=== PATIENT | female | born 1940 | race Caucasian/White ===

== ENCOUNTER → 2017-10-23 13:03 | Outpatient (CLI) | payer OTHER, SELFPAY | PROVIDERS: Family Provider Physician Assistant; PCP Physician Assistant; Visit Provider Physician Assistant | DX: R30.9 Painful micturition, unspecified (principal) | CPT/HCPCS: 87077; 87086; 87186 ==

== ENCOUNTER → 2017-11-04 12:01 | Outpatient (CLI) | payer OTHER, SELFPAY ==
--- NOTE | 2017-11-04 | DI.MG.S_ITS ---
BILATERAL DIGITAL SCREENING MAMMOGRAM 3D/2D WITH CAD: 11/04/2017 CLINICAL: Routine screening. Family history of breast cancer. Comparison is made to exams dated: 09/09/2016 mammogram, 07/24/2015 mammogram, and 06/15/2014 mammogram - [facility]. The tissue of both breasts is extremely dense, which lowers the sensitivity of mammography. Current study was also evaluated with a Computer Aided Detection (CAD) system. No significant masses, calcifications, or other findings are seen in either breast. There has been no significant interval change. IMPRESSION: NEGATIVE There is no mammographic evidence of malignancy. A 1 year screening mammogram is recommended. This exam was interpreted at Station ID: [id number]. NOTE: For mammograms, a report in lay terms will be sent to the patient. Approximately 15% of breast malignancies will not be visualized mammographically. In the management of a palpable breast mass, a negative mammogram must not discourage biopsy of a clinically suspicious lesion. Electronically Signed By: Iker verdugo/mik:11/04/2017 16:35:32 letter sent: Normal Exam ACR BI-RADS Category 1: Negative 3341F
== END ==
PROVIDERS: Family Provider Physician Assistant; PCP Physician Assistant; Visit Provider Physician Assistant
DX: Z12.31 Encounter for screening mammogram for malignant neoplasm of breast (principal); Z80.3 Family history of malignant neoplasm of breast
CPT/HCPCS: 77063; 77067

== ENCOUNTER → 2017-11-05 08:53 | Outpatient (CLI) | payer OTHER, SELFPAY ==
[2017-11-05 10:16] LABS: HEMOLYSIS < 15 (0-50); Iron 130 ug/dL (37-170)
[2017-11-05 10:21] LABS: Alanine Aminotransferase 22 IU/L (9-52); Albumin 4.3 g/dL (3.5-5.0); Albumin Globulin Ratio 1.3 (1.0-2.8); Alkaline Phosphatase 66 U/L (38-126); Aspartate Aminotransferase 31 IU/L (14-36); BUN Creatinine Ratio 24.3 (6-22); Bilirubin Total 0.9 mg/dL (0.2-1.3); Blood Urea Nitrogen 17 mg/dL (7-17); Calcium 9.1 mg/dL (8.4-10.2); Carbon Dioxide 29 mmol/L (22-32); Chloride 100 mmol/L (98-107); Cholesterol 211 mg/dL (140-199); Estimated Glomerular Filt Rate > 60.0 mL/min (>60); Globulin 3.2 g/dL (1.7-4.1); Glucose 91 mg/dL (80-110); HDL Cholesterol 99 mg/dL (40-60); HEMOLYSIS < 15 (0-50); LDL Cholesterol Calculated 103 mg/dL (<100); Potassium 4.3 mmol/L (3.4-5.1); Sodium 139 mmol/L (137-145); Total Protein 7.5 g/dL (6.3-8.2); Triglycerides 47 mg/dL (35-150)
[2017-11-05 10:27] LABS: Percent Iron Saturation 42 % (15-50); Total Iron Binding Capacity 311 ug/dL (265-497); Transferrin 259 mg/dL (206-381)
[2017-11-05 10:32] LABS: Free T4, Direct Thyroxine 1.05 ng/dL (0.78-2.19)
[2017-11-05 10:46] LABS: Thyroid Stimulating Hormone 1.93 uIU/mL (0.47-4.68)
[2017-11-05 10:51] LABS: Ferritin 63.2 ng/mL (11.1-264)
== END ==
PROVIDERS: Family Provider Physician Assistant; PCP Physician Assistant; Visit Provider Physician Assistant
DX: R53.83 Other fatigue (principal); R21 Rash and other nonspecific skin eruption; Z13.220 Encounter for screening for lipoid disorders; Z13.6 Encounter for screening for cardiovascular disorders
CPT/HCPCS: 36415; 80053; 80061; 82728; 83540; 83550; 84439; 84443

== ENCOUNTER → 2017-11-08 11:05 | Outpatient (CLI) | payer OTHER, SELFPAY | PROVIDERS: Family Provider Physician Assistant; PCP Physician Assistant; Visit Provider Physician Assistant | DX: R39.9 Unspecified symptoms and signs involving the genitourinary system (principal) | CPT/HCPCS: 87077; 87086; 87186 ==

== ENCOUNTER → 2017-12-16 11:27 | Outpatient (CLI) | payer OTHER, SELFPAY | PROVIDERS: Family Provider Physician Assistant; PCP Physician Assistant; Visit Provider Physician Assistant | DX: N39.0 Urinary tract infection, site not specified (principal) | CPT/HCPCS: 87077; 87086; 87186 ==

== ENCOUNTER → 2018-06-03 09:44 | Outpatient (CLI) | payer OTHER, SELFPAY ==
--- NOTE | 2018-06-03 09:51 | DI.US.S_ITS ---
PROCEDURE: US CHEST COMPARISON: None. INDICATIONS: Soft tissue mass upper left below lateral clavicle FINDINGS: A focused ultrasound is performed in the area of interest. There is a 2.2 x 1.2 x 3.0 cm isoechoic mass deep to the palpable abnormality. Upper ultrasound, there is vascularity within the mass. IMPRESSION: A 2.2 x 1.2 x 3.0 cm isoechoic mass in the area of palpable abnormality. 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 MRI or CT is suggested for followup evaluation. Dictated by: Ml Connolly M.D. on 06/03/2018 at 11:41 Approved by: Ml Connolly M.D. on 06/03/2018 at 17:54
== END ==
PROVIDERS: PCP Physician Assistant; Visit Provider Physician Assistant
DX: M79.9 Soft tissue disorder, unspecified (principal)
CPT/HCPCS: 76604

== ENCOUNTER → 2018-11-16 12:11 | Outpatient (CLI) | payer OTHER, SELFPAY ==
--- NOTE | 2018-11-16 | DI.MG.S_ITS ---
BILATERAL DIGITAL SCREENING MAMMOGRAM 3D/2D WITH CAD: 11/16/2018 CLINICAL: Routine screening. Family history of breast cancer. Comparison is made to exams dated: 11/04/2017 mammogram, 09/09/2016 mammogram, and 07/24/2015 mammogram - [facility]. The tissue of both breasts is extremely dense, which lowers the sensitivity of mammography. Current study was also evaluated with a Computer Aided Detection (CAD) system. No significant masses, calcifications, or other findings are seen in either breast. There has been no significant interval change. IMPRESSION: NEGATIVE There is no mammographic evidence of malignancy. A 1 year screening mammogram is recommended. This exam was interpreted at Station ID: [id number]. NOTE: For mammograms, a report in lay terms will be sent to the patient. Approximately 15% of breast malignancies will not be visualized mammographically. In the management of a palpable breast mass, a negative mammogram must not discourage biopsy of a clinically suspicious lesion. Electronically Signed By: Amna cornejo/mik:11/16/2018 12:52:45 letter sent: Normal Exam ACR BI-RADS Category 1: Negative 3341F
== END ==
PROVIDERS: PCP Physician Assistant; Visit Provider Physician Assistant
DX: Z12.31 Encounter for screening mammogram for malignant neoplasm of breast (principal); Z80.3 Family history of malignant neoplasm of breast; M85.852 Other specified disorders of bone density and structure, left thigh; Z78.0 Asymptomatic menopausal state; Z90.722 Acquired absence of ovaries, bilateral; Z82.62 Family history of osteoporosis; Z87.891 Personal history of nicotine dependence
CPT/HCPCS: 77063; 77067; 77080

== ENCOUNTER → 2018-12-14 10:29 | Outpatient (CLI) | payer OTHER, SELFPAY ==
--- NOTE | 2018-12-14 | DI.RAD.S_ITS ---
PROCEDURE: XR LUMBAR SPINE 2-3V INDICATIONS: Low Back Pain TECHNIQUE: 3 views of the lumbar spine were acquired. COMPARISON: [facility], CT, ABDOMEN/PELVIS WITH CONTRAST, 08/23/2015, 13:08. FINDINGS: Bones: 5 [id number] vertebrae are present. There is abnormal bony alignment with grade 1-2 anterolisthesis of L4 on L5, previously present to a slightly lesser degree on CT scanning from 08/22/18. Disc height reduction and facet osteoarthritis has mildly worsened at this level also, with ligamentous laxity as the likely cause for the subluxation noted. There is essentially tfmv-xy-hlin articulation between the base and endplates. No vertebral body compression fractures. No suspicious bony lesions. Soft tissues: Overlying bowel gas pattern is normal. No suspicious soft tissue calcifications. IMPRESSION: Severe degenerative disc disease with grade 1-2 anterolisthesis of L4 and L5 at the lower lumbosacral spine, without pars interarticularis defects identified. Rather, severe degenerative disc height reduction and ligamentous laxity as the presumed cause for the anterolisthesis present. Along the lumbosacral spine no compression fracture is seen. The degree of subluxation and degenerative change at L4-5 has only mildly worsened from the comparison CT scanning included this area 08/23/15. Dictated by: Fermin Muller M.D. on 12/14/2018 at 10:55 Approved by: Fermin Muller M.D. on 12/14/2018 at 10:57
== END ==
PROVIDERS: PCP Physician Assistant; Visit Provider Chiropractor
DX: M54.5 Low back pain (principal); M51.37 Other intervertebral disc degeneration, lumbosacral region; M51.36 Other intervertebral disc degeneration, lumbar region
CPT/HCPCS: 72100

== ENCOUNTER → 2019-03-15 16:12 | Outpatient (CLI) | payer OTHER, SELFPAY ==
--- NOTE | 2019-03-15 16:13 | DI.MRI.S_ITS ---
PROCEDURE: MR LUMBAR SPINE WO CON INDICATIONS: Persistant LBP with radiation into left hip/lower leg TECHNIQUE: Noncontrast sagittal T1 spin echo and T2 fast echo, sagittal STIR, axial T1 and T2 fast spin echo through the lumbar spine. In cases with scoliosis, additional coronal T2 fast spin echo may be performed. COMPARISON: [facility], CR, XR LUMBAR SPINE 2-3V, 12/14/2018, 10:36. [facility], CT, ABDOMEN/PELVIS WITH CONTRAST, 08/23/2015, 13:08. FINDINGS: Image quality: Excellent. Alignment and Curvature: Grade 1 anterolisthesis is seen at the L4-L5 level. No associated pars defects are seen. Bone Marrow: Marrow is of normal overall signal. No acute vertebral body compression fractures. Spinal Cord: Conus medullaris terminates at the L1 level. Visualized cord demonstrates normal signal and size. Paraspinous Soft Tissues: No paravertebral masses. T12-L1: Normal appearance. L1-L2: Normal appearance. L2-L3: No significant abnormality is seen. L3-L4: The disc height is well-preserved. Loss of disc signal is seen at this level. Mild generalized disc bulge is seen. Moderate facet joint hypertrophy is seen. There is mild right-sided and no left-sided neural foraminal narrowing seen. Moderate central canal narrowing is seen. Moderate to prominent facet hypertrophy is seen. L4-L5: There is moderate to severe loss of disc height and disc signal seen. Moderate generalized disc bulge is seen. Prominent facet hypertrophy is seen. There is at least moderate bilateral neural foraminal narrowing seen. There is a degree of compression seen upon the exiting nerve roots. Moderate to severe central canal narrowing is seen, as on series 4 image 26. L5-S1: The disc height is well-preserved. Loss of disc signal is seen at this level. Mild generalized disc bulge is seen. Owal-jm-kcwjvxdq facet hypertrophy is seen. There is mild left-sided and right-sided neural foraminal narrowing seen. No significant central canal narrowing is seen. IMPRESSION: Focal L4-L5 degenerative change, where there is grade 1 anterolisthesis with at least moderate bilateral neural foraminal narrowing and moderate to severe central canal narrowing. Dictated by: Jason Coyne M.D. on 03/15/2019 at 16:47 Approved by: Jason Coyne M.D. on 03/15/2019 at 16:52
== END ==
PROVIDERS: PCP Physician Assistant; Visit Provider Physician Assistant
DX: M47.26 Other spondylosis with radiculopathy, lumbar region (principal); M25.552 Pain in left hip; M48.061 Spinal stenosis, lumbar region without neurogenic claudication; M43.16 Spondylolisthesis, lumbar region
CPT/HCPCS: 72148

== ENCOUNTER 2020-02-04 15:53 | Emergency (ER) | payer MEDICARE, SELFPAY ==
[2020-02-04] VITALS (8 sets, daily range): BP systolic 145–169; BP diastolic 87–111; PULSE 93–144; RESP 20–28; TEMP 36.3–36.4; O2SAT 97–99; BMI 19.8
--- NOTE | 2020-02-04 16:14 | DI.RAD.S_ITS ---
PROCEDURE: XR CHEST 1V INDICATIONS: Chest pain TECHNIQUE: One view of the chest was acquired. COMPARISON: None. FINDINGS: Surgical changes and devices: None. Lungs and pleura: Lungs are clear. No pleural effusions or pneumothorax. Mediastinum: Mediastinal contours appear normal. Heart size is normal. Bones and chest wall: No suspicious bony lesions. Overlying soft tissues appear unremarkable. IMPRESSION: No acute process. Dictated by: Donnell Sanon M.D. on 02/04/2020 at 16:43 Approved by: Donnell Sanon M.D. on 02/04/2020 at 16:44
--- NOTE | 2020-02-04 16:23 | ED_ITS ---
HPI - Arrhythmia/Palpitations General Chief Complaint: Arrhythmia/Palpitations Stated Complaint: Abnormal EKG Time Seen by Provider: 02/04/20 16:06 Source: patient Mode of arrival: Family Vehicle Limitations: no limitations History of Present Illness HPI narrative: Patient sent here from primary care office Dr. Leslie, for abnormal EKG. Patient with primary care today for preventive care visit because her medical insurance changed. Denies denies denies any recent or today chest pain palpitations dizziness dyspnea. No prior history of heart problems. EKG in office shows atrial fibrillation with RVR rate of 116. Patient did not know she was in atrial fibrillation. complaint: atrial fibrillation Related Data Previous Rx's Medication Instructions Recorded valacyclovir 500 mg tablet 500 mg PO BID PRN #30 tab 01/18/19 Estriol Vaginal Cream 0.1 % VAGINAL BEDTIME #30 gram 05/25/19 metoprolol tartrate 25 mg PO BID #30 tab 02/04/20 Allergies Allergy/AdvReac Type Severity Reaction Status Date / Time gluten Allergy Intermediate diarrhea Verified 02/04/20 16:17 Review of Systems Review of Systems Narrative: GENERAL: Denies chills, fatigue, malaise, fever, sweats. HEENT: Denies sinus pain, ear pain, sore throat, difficulty swallowing, dizziness. RESPIRATORY: Denies dyspnea, cough, wheezing, hemoptysis, sputum. CARDIOVASCULAR: Denies chest pain, palpitations, orthopnea, edema, GASTROINTESTINAL: Denies nausea, vomiting, abdominal pain, diarrhea, constipation, melena. : Denies dysuria, frequency, incontinence, hematuria, urinary retention. MUSCULOSKELETAL: denies weakness, joint pain, or bony pain SKIN: Denies rash, skin lesions NEUROLOGIC: Denies weakness, headache, numbness, change in speech, confusion, seizures, incoordination. PSYCHIATRIC: No concerning psychosocial issues. ROS Unobtainable: All systems reviewed & are unremarkable except as noted in HPI and below Patient History Surgical History Status post ovarian cystectomy Family History Mother Breast cancer Sister Age: 79 Cervical cancer Father Rheumatoid arthritis Social History marital status: household members: spouse occupational status: previously employed Smoking Status: Former smoker Tobacco: How many years used: 20 second hand exposure: No alcohol intake: current (a glass of wine a day) substance use type: does not use Smoking Status: Former smoker alcohol intake frequency: 0-2 drinks per day Alcohol type: wine Substance Use Type: does not use Exam Narrative Exam Narrative: GENERAL: patient appears stated age. Well-nourished, well- developed patient, in no distress, not toxic HEAD: Atraumatic. Normocephalic. EYES: Pupils equal round and reactive. Extraocular motions intact. No scleral icterus. No injection or drainage. ENT: Nose without bleeding, purulent drainage. Throat without erythema, tonsillar hypertrophy or exudate. Airway patent. NECK: Trachea midline. Non tender CARDIOVASCULAR: Irregularly irregular rhythm without murmurs, gallops, or rubs. RESPIRATORY: Clear to auscultation. Breath sounds equal bilaterally. No wheezes, rales, or rhonchi. GASTROINTESTINAL: Abdomen soft, non-tender, nondistended. EXTREMITIES: No edema or joint tenderness. BACK: Nontender without deformity or crepitance. No flank tenderness. NEURO: AOx4. SKIN: No rash or erythema of visible areas PSYCH: Not anxious, is cooperative Initial Vital Signs Initial Vital Signs: Vital Signs Temperature 97.4 F L 02/04/20 16:00 Pulse Rate 144 H 02/04/20 16:00 Respiratory Rate 20 02/04/20 16:00 Blood Pressure 169/95 H 02/04/20 16:00 Pulse Oximetry 97 02/04/20 16:00 Course Course Course Narrative: No cardiopulmonary complaints during stay Orders Ordered: ED Orders 02/04/20 16:01 EKG-12 Lead Stat 02/04/20 16:14 XR chest 1V Stat 02/04/20 16:20 Complete Blood Count AUTO DIFF Stat Comprehensive Metabolic Panel Stat Lipase Stat Partial Thromboplastin Time Stat Prothrombin Time INR Stat Thyroid Stimulating Hormone Stat Troponin & CK Cardiac Panel Stat Discontinued Medications Metoprolol Succinate (Toprol Xl) 25 mg PO NOW ONE Stop: 02/04/20 17:28 Last Admin: 02/04/20 17:40 Dose: 25 mg Documented by: WARNER Reevaluation(s) Reevaluation #1: Reviewed results in discussion with specialized language instructor with patient and at bedside. They agree with plan. Understands risk of stroke with atrial fibrillation. Understands she is to follow up with cardiology next week to start Eliquis Time: 17:28 Reevaluation #2: Heart rate 93 and still in AFib but stable. No chest complaints palpitations dyspnea or chest pain Time: 18:19 Consultations Consultation #1: Spoke with cardiology dr rodriguez, patient can be discharged home. Follow up in his office, he will continue evaluation and workup in start Eliquis in the office. Start metoprolol tonight 25 mg twice a day Time: 17:29 Vital Signs Vital signs: Vital Signs - 8 hr 02/04/20 16:00 02/04/20 17:01 02/04/20 17:08 Temperature 97.4 F L Pulse Rate 144 H 120 H 115 H Respiratory Rate 20 22 Blood Pressure 169/95 H 169/94 H Pulse Oximetry 97 99 99 02/04/20 17:30 02/04/20 17:40 Temperature Pulse Rate 99 H 99 H Respiratory Rate 26 H Blood Pressure 145/111 H 145/111 H Pulse Oximetry MDM - Arrhythmia/Palpitations Differential Diagnosis Differential diagnosis: Likely artial fibrillation and artial flutter Medical Records Attestation: I reviewed the patient's medical records. Lab Data Attestation: I reviewed the patient's lab results. Result diagrams: 02/04/20 16:20 02/04/20 16:20 Labs: Lab Results 02/04/20 02/04/20 02/04/20 Range/Units 16:20 16:20 16:20 WBC 8.4 (4.5-11.0) X10^3/uL RBC 4.05 (4.0-5.2) X10^6/uL Hgb 13.7 (12.0-16.0) g/dL Hct 41.0 (36-46) % MCV 101.2 H (80-100) fL MCH 33.7 (26-34) PG MCHC 33.3 (30-36) % RDW 13.4 (11.6-14.8) % Plt Count 292 (150-400) X10^3/uL Neut % (Auto) 66.5 (50-75) % Lymph % (Auto) 23.1 L (25-40) % [place] % (Auto) 8.5 (3-14) % Eos % (Auto) 1.5 L (2-4) % Baso % (Auto) 0.4 (0-2) % Neut # (Auto) 5600 (2020-6636) /uL Lymph # (Auto) 1900 (8223-1164) /uL [place] # (Auto) 700 (0-900) /uL Eos # (Auto) 100 (0-450) /uL Baso # (Auto) 0 (0-100) /uL PT 11.9 (10.1-12.7) SECONDS INR 1.0 (0.9-1.3) APTT 29 (26.4-36.2) SECONDS Sodium 139 (137-145) mmol/L Potassium 4.2 (3.4-5.1) mmol/L Chloride 104 (98-107) mmol/L Carbon Dioxide 26 (22-32) mmol/L BUN 17 (7-17) mg/dL Creatinine 0.82 (0.52-1.04) mg/dL Estimated GFR > 60.0 (>60) mL/min BUN/Creatinine Ratio 20.7 (6-22) Glucose 109 (80-110) mg/dL Calcium 9.8 (8.4-10.2) mg/dL Total Bilirubin 0.6 (0.2-1.3) mg/dL AST 38 H (14-36) IU/L ALT 18 (<35) IU/L Alkaline Phosphatase 92 (38-126) U/L Total Creatine Kinase 114 (30-135) U/L CK-MB (CK-2) 2.06 (<2.37) ng/mL CK-MB (CK-2) Rel Index 1.8 (1.5-5.0) % Troponin I < 0.012 (0.01-0.034) ng/mL Total Protein 7.5 (6.3-8.2) g/dL Albumin 4.3 (3.5-5.0) g/dL Globulin 3.2 (1.7-4.1) g/dL Albumin/Globulin Ratio 1.3 (1.0-2.8) Lipase 111 (23-300) U/L TSH (0.47-4.68) uIU/mL 02/04/20 Range/Units 16:20 WBC (4.5-11.0) X10^3/uL RBC (4.0-5.2) X10^6/uL Hgb (12.0-16.0) g/dL Hct (36-46) % MCV (80-100) fL MCH (26-34) PG MCHC (30-36) % RDW (11.6-14.8) % Plt Count (150-400) X10^3/uL Neut % (Auto) (50-75) % Lymph % (Auto) (25-40) % [place] % (Auto) (3-14) % Eos % (Auto) (2-4) % Baso % (Auto) (0-2) % Neut # (Auto) (2978-9160) /uL Lymph # (Auto) (8402-5907) /uL [place] # (Auto) (0-900) /uL Eos # (Auto) (0-450) /uL Baso # (Auto) (0-100) /uL PT (10.1-12.7) SECONDS INR (0.9-1.3) APTT (26.4-36.2) SECONDS Sodium (137-145) mmol/L Potassium (3.4-5.1) mmol/L Chloride (98-107) mmol/L Carbon Dioxide (22-32) mmol/L BUN (7-17) mg/dL Creatinine (0.52-1.04) mg/dL Estimated GFR (>60) mL/min BUN/Creatinine Ratio (6-22) Glucose (80-110) mg/dL Calcium (8.4-10.2) mg/dL Total Bilirubin (0.2-1.3) mg/dL AST (14-36) IU/L ALT (<35) IU/L Alkaline Phosphatase (38-126) U/L Total Creatine Kinase (30-135) U/L CK-MB (CK-2) (<2.37) ng/mL CK-MB (CK-2) Rel Index (1.5-5.0) % Troponin I (0.01-0.034) ng/mL Total Protein (6.3-8.2) g/dL Albumin (3.5-5.0) g/dL Globulin (1.7-4.1) g/dL Albumin/Globulin Ratio (1.0-2.8) Lipase (23-300) U/L TSH 1.16 (0.47-4.68) uIU/mL Imaging Data Chest x-ray: Radiologist's Impresson: [address] [id number] XRay Report Signed Patient: Yris Nichols#: [id number] : 2Acct:[id number] Age/Sex: 79 / FDate of Service: 02/04/20 Loc: ED Accession Number: [id number] Procedure: XR chest 1V Ordering Provider: Saeed Camejo MD PROCEDURE: XR CHEST 1V INDICATIONS: Chest pain TECHNIQUE: One view of the chest was acquired. COMPARISON: None. FINDINGS: Surgical changes and devices: None. Lungs and pleura: Lungs are clear. No pleural effusions or pneumothorax. Mediastinum: Mediastinal contours appear normal. Heart size is normal. Bones and chest wall: No suspicious bony lesions. Overlying soft tissues appear unremarkable. IMPRESSION: No acute process. Dictated by: Donnell Sanon M.D. on 02/04/2020 at 16:43 Approved by: Donnell Sanon M.D. on 02/04/2020 at 16:44 ECG Data Attestation: I personally reviewed and interpreted this ECG as follows: Interpretation: Atrial fibrillation with RVR ventricular rate [address] elevation MDM Narrative Medical decision making narrative: Appropriate for discharge home. Reviewed with specialized language instructor. This is incidental finding and asymptomatic. Discharge Plan Departure Patient Disposition: Home Clinical Impression: Atrial fibrillation, new onset Instructions: DI for Atrial Fibrillation Activity Restrictions/Additional Instructions: Call provided specialized language instructor office on Friday for office time next week. Lead Game Designer will start you on Eliquis, blood thinner next week. Continue new blood pressure medication tomorrow morning. Return if worse or any questions concerns. Prescription has been sent to your [facility] Prescriptions: New metoprolol tartrate 25 mg tablet 25 mg PO BID Qty: 30 RF: 0 No Action valacyclovir 500 mg tablet 500 mg PO BID PRN (Reason: Herpes infection) Qty: 30 RF: 6 Estriol Vaginal Cream cream 0.1 % vaginal BEDTIME Qty: 30 RF: 6 Referrals: Starr Muir PA-C [Primary Care Provider] - Rhea Rodriguez MD [Physician] -
[2020-02-04 16:32] LABS: Add Manual Diff / Slide Review NO; Basophils Absolute Auto 0 /uL (0-100); Basophils Percent Auto 0.4 % (0-2); Eosinophils Absolute Auto 100 /uL (0-450); Eosinophils Percent Auto 1.5 % (2-4); Hemoglobin 13.7 g/dL (12.0-16.0); Lymphocytes Absolute Auto 1900 /uL (1100-4500); Lymphocytes Percent Auto 23.1 % (25-40); Mean Corpuscular HGB Conc 33.3 % (30-36); Mean Corpuscular Hemoglobin 33.7 PG (26-34); Mean Corpuscular Volume 101.2 fL (80-100); Monocytes Absolute Auto 700 /uL (0-900); Monocytes Percent Auto 8.5 % (3-14); Neutrophils Absolute Auto 5600 /uL (1500-7000); Neutrophils Percent Auto 66.5 % (50-75); Platelet Count 292 X10^3/uL (150-400); Red Blood Cell Count 4.05 X10^6/uL (4.0-5.2); Red Cell Distribution Width 13.4 % (11.6-14.8); White Blood Cell Count 8.4 X10^3/uL (4.5-11.0)
[2020-02-04 16:37] LABS: Prothrombin Time 11.9 SECONDS (10.1-12.7)
[2020-02-04 16:40] LABS: PTT Partial Thromboplastin Tim 29 SECONDS (26.4-36.2)
[2020-02-04 16:52] LABS: Alanine Aminotransferase 18 IU/L (<35); Albumin 4.3 g/dL (3.5-5.0); Albumin Globulin Ratio 1.3 (1.0-2.8); Alkaline Phosphatase 92 U/L (38-126); Aspartate Aminotransferase 38 IU/L (14-36); BUN Creatinine Ratio 20.7 (6-22); Bilirubin Total 0.6 mg/dL (0.2-1.3); Blood Urea Nitrogen 17 mg/dL (7-17); Calcium 9.8 mg/dL (8.4-10.2); Carbon Dioxide 26 mmol/L (22-32); Chloride 104 mmol/L (98-107); Creatine Kinase 114 U/L (30-135); Estimated Glomerular Filt Rate > 60.0 mL/min (>60); Globulin 3.2 g/dL (1.7-4.1); Glucose 109 mg/dL (80-110); HEMOLYSIS < 15 (0-50); Lipase 111 U/L (23-300); Potassium 4.2 mmol/L (3.4-5.1); Sodium 139 mmol/L (137-145); Total Protein 7.5 g/dL (6.3-8.2)
[2020-02-04 17:03] LABS: Troponin I < 0.012 ng/mL (0.01-0.034)
[2020-02-04 17:07] LABS: CKMB % Relative Index 1.8 % (1.5-5.0); Creatine Kinase MB 2.06 ng/mL (<2.37)
[2020-02-04] MEDS: METOPROLOL ER 25 MG TABLET PO (17:40)
[2020-02-04 17:56] LABS: Thyroid Stimulating Hormone 1.16 uIU/mL (0.47-4.68)
== END 2020-02-04 18:44 | disposition home or self-care (01) ==
PROVIDERS: Emergency Provider Emergency Medicine; PCP Physician Assistant
DX: I48.91 Unspecified atrial fibrillation (principal)
CPT/HCPCS: 36415; 71045; 80053; 82550; 82553; 83690; 84443; 84484; 85025; 85610; 85730; 93005; 99284

== ENCOUNTER → 2020-02-26 12:44 | Outpatient (CLI) | payer MEDICARE, SELFPAY ==
--- NOTE | 2020-02-26 | DI.MG.S_ITS ---
BILATERAL DIGITAL SCREENING MAMMOGRAM 3D/2D WITH CAD: 02/26/2020 CLINICAL: Routine screening. Family history of breast cancer. Comparison is made to exams dated: 11/16/2018 mammogram, 11/04/2017 mammogram, and 09/09/2016 mammogram - [facility]. The tissue of both breasts is extremely dense, which lowers the sensitivity of mammography. Current study was also evaluated with a Computer Aided Detection (CAD) system. No significant masses, calcifications, or other findings are seen in either breast. There has been no significant interval change. IMPRESSION: NEGATIVE There is no mammographic evidence of malignancy. A 1 year screening mammogram is recommended. This exam was interpreted at Station ID: [id number]. NOTE: For mammograms, a report in lay terms will be sent to the patient. Approximately 15% of breast malignancies will not be visualized mammographically. In the management of a palpable breast mass, a negative mammogram must not discourage biopsy of a clinically suspicious lesion. Electronically Signed By: Amna cornejo/mik:02/28/2020 08:45:46 letter sent: Normal Exam ACR BI-RADS Category 1: Negative 3341F
== END ==
PROVIDERS: PCP Family Medicine; Referring Provider Family Medicine; Visit Provider Family Medicine
DX: Z12.31 Encounter for screening mammogram for malignant neoplasm of breast (principal); Z80.3 Family history of malignant neoplasm of breast
CPT/HCPCS: 77063; 77067

== ENCOUNTER → 2020-03-02 15:01 | Outpatient (CLI) | payer MEDICARE, SELFPAY ==
--- NOTE | 2020-03-02 | DI.ECHO.S_ITS ---
[facility]---------+ [facility] +---------+ : : [address] : : : : [id number] : : : : Phone: [phone] Echocardiogram Report + + :Name: TANYA DICKENS Study Date: 03/02/2020 Height: 62 in : :[facility] Weight: 103 lb : : Gender: Female BSA: 1.4 m2 : :: 1940 Age: 79 yrs BP: 133/89 mmHg: :Reason For Study: ATRIAL FIBRILLATION : :Ordering Physician: VERÓNICA, : :DIANDRA Performed By: Renetta Willis : :Referring: DIANDRA KUNZ : + + Interpretation Summary 1) Small left ventricular cavity with low normal systolic function (EF 50- 55%). 2) Normal right ventricular size with low normal function. 3) The left atrium is severely dilated. The right atrium is severely dilated. 4) There is mild to moderate tricuspid regurgitation. 5) No prior Echo available for comparison. Procedure: A two-dimensional transthoracic echocardiogram with color flow and Doppler was performed. The study quality was technically good. There is no prior echocardiogram noted for this patient. The patient was in atrial fibrillation with heart rates between 74-90 bpm during the exam. Left Ventricle: The left ventricular cavity is small. Left ventricular wall thickness is borderline increased. The ejection fraction is estimated to be 50-55%. There are no focal wall motion abnormalities. Diastolic parameters suggest a pseudonormalization pattern, consistent with probable elevated filling pressures. Right Ventricle: The right ventricle is normal size. Right ventricular systolic function is at the lower limits of normal. Atria: The left atrium is severely dilated. The right atrium is severely dilated. There is no Doppler evidence for an interatrial shunt. Mitral Valve: The mitral valve leaflets appear mildly thickened, but open well. There is mild mitral regurgitation. Aortic Valve: The aortic valve is trileaflet. The aortic valve opens well. There is no aortic valve stenosis. No aortic regurgitation is present. Tricuspid Valve: The tricuspid valve is normal in structure and function. The right ventricular systolic pressure is estimated to be at least 32 mmHg based on an estimated right atrial pressure of 8 mm Hg. There is mild to moderate tricuspid regurgitation. Pulmonic Valve: The pulmonic valve leaflets are thin and pliable; valve motion is normal. There is mild pulmonic regurgitation. Great Vessels: The aortic root is normal size. The dimensions of the ascending aorta are normal. The IVC is dilated (diameter is greater than 2.1 cm) yet it collapses greater than 50% with a sniff. This suggests a right atrial pressure of 8 mm Hg. Pericardium/ Pleura There is no pericardial effusion. There is no pleural effusion. MMode/2D Measurements & Calculations LVIDd: 3.6 cm LVOT diam: 1.9 cm LVIDs: 2.6 cm Ao root diam: 2.9 cm FS: 28.8 % asc Aorta Diam: 2.8 cm EPSS: 1.1 cm Ao Arch Diam (Prox Trans): 2.2 cm IVSd: 1.1 cm LVPWd: 1.00 cm LV glover. diameter/BSA (cm/m^2): 2.5 LV sys. diameter/BSA (cm/m^2): 1.8 LA A2 area: 24.3 cm2 RA long axis: 5.6 cm LA A4 area: 24.4 cm2 RA area: 21.7 cm2 LA length (vol): 6.0 cm RA vol: 71.1 ml LA vol: 83.8 ml RA : 49.3 ml/m2 LA vol index: 58.1 ml/m2 IVC diam: 2.2 cm RVD1 (basal): 3.0 cm TAPSE: 1.7 cm Doppler Measurements & Calculations Ao V2 max: 96.1 cm/sec LVOT Max Alcides: 56.5 cm/sec Ao V2 mean: 65.8 cm/sec LV V1 max P.3 mmHg Ao max P.7 mmHg LV V1 VTI: 11.9 cm Ao mean P.0 mmHg OPAL(I,D): 1.8 cm2 Ao V2 VTI: 18.8 cm OPAL(V,D): 1.7 cm2 sev ratio: 0.63 OPAL indexed to BSA (cm^2/m^2): 1.2 MV E max alcides: 88.3 cm/sec TR max alcides: 244.2 cm/sec MV A max alcides: 0.72 cm/sec TR max P.9 mmHg MV E/A: 123.2 PA V2 max: 39.4 cm/sec Med Peak E' Alcides: 3.6 cm/sec PA V2 mean: 25.3 cm/sec E/E' med: 24.5 PA mean P.30 mmHg Lat Peak E' Alcides: 7.0 cm/sec PA pr(Accel): 34.5 mmHg E/E' lat: 12.5 E/e' average: 18.5 MV dec time: 0.15 sec MVA(VTI): 2.2 cm2 MV V2 mean: 58.6 cm/sec SV(LVOT): 33.5 ml MV mean P.7 mmHg MV V2 VTI: 15.4 cm Reading Physician:10:48 AM
== END ==
PROVIDERS: PCP Family Medicine; Referring Provider Internal Medicine Cardiovascular Disease; Visit Provider Internal Medicine Cardiovascular Disease
DX: I08.1 Rheumatic disorders of both mitral and tricuspid valves (principal); I48.19 Other persistent atrial fibrillation
CPT/HCPCS: 93306

== ENCOUNTER → 2020-03-16 12:40 | Outpatient (CLI) | payer MEDICARE, SELFPAY ==
[2020-03-16 13:36] LABS: Add Manual Diff / Slide Review NO; Basophils Absolute Auto 0 /uL (0-100); Basophils Percent Auto 0.5 % (0-2); Eosinophils Absolute Auto 100 /uL (0-450); Eosinophils Percent Auto 1.7 % (2-4); Hematocrit 38.7 % (36-46); Lymphocytes Absolute Auto 1800 /uL (1100-4500); Lymphocytes Percent Auto 30.8 % (25-40); Mean Corpuscular HGB Conc 33.6 % (30-36); Mean Corpuscular Hemoglobin 33.1 PG (26-34); Mean Corpuscular Volume 98.5 fL (80-100); Monocytes Absolute Auto 500 /uL (0-900); Monocytes Percent Auto 8.9 % (3-14); Neutrophils Absolute Auto 3300 /uL (1500-7000); Neutrophils Percent Auto 58.1 % (50-75); Platelet Count 244 X10^3/uL (150-400); Red Blood Cell Count 3.93 X10^6/uL (4.0-5.2); Red Cell Distribution Width 13.1 % (11.6-14.8); White Blood Cell Count 5.7 X10^3/uL (4.5-11.0)
[2020-03-16 14:08] LABS: BUN Creatinine Ratio 21.4 (6-22); Blood Urea Nitrogen 18 mg/dL (7-17); Calcium 9.3 mg/dL (8.4-10.2); Carbon Dioxide 29 mmol/L (22-32); Chloride 104 mmol/L (98-107); Cholesterol 205 mg/dL (140-199); Estimated Glomerular Filt Rate > 60.0 mL/min (>60); Glucose 98 mg/dL (80-110); HDL Cholesterol 72 mg/dL (40-60); HEMOLYSIS < 15 (0-50); LDL Cholesterol Calculated 120 mg/dL (<100); Potassium 4.3 mmol/L (3.4-5.1); Sodium 137 mmol/L (137-145); Triglycerides 67 mg/dL (35-150)
== END ==
PROVIDERS: PCP Family Medicine; Referring Provider Family Medicine; Visit Provider Internal Medicine Cardiovascular Disease
DX: I10 Essential (primary) hypertension (principal)
CPT/HCPCS: 36415; 80048; 80061; 85025

== ENCOUNTER → 2020-04-13 15:57 | Outpatient (CLI) | payer MEDICARE, SELFPAY ==
[2020-04-13 16:40] LABS: Add Manual Diff / Slide Review NO; Basophils Absolute Auto 0 /uL (0-100); Basophils Percent Auto 0.5 % (0-2); Eosinophils Absolute Auto 100 /uL (0-450); Eosinophils Percent Auto 1.2 % (2-4); Hematocrit 36.4 % (36-46); Hemoglobin 12.3 g/dL (12.0-16.0); Lymphocytes Absolute Auto 1800 /uL (1100-4500); Lymphocytes Percent Auto 33.8 % (25-40); Mean Corpuscular HGB Conc 33.8 % (30-36); Mean Corpuscular Hemoglobin 32.9 PG (26-34); Mean Corpuscular Volume 97.3 fL (80-100); Monocytes Absolute Auto 600 /uL (0-900); Monocytes Percent Auto 11.4 % (3-14); Neutrophils Absolute Auto 2900 /uL (1500-7000); Neutrophils Percent Auto 53.1 % (50-75); Platelet Count 266 X10^3/uL (150-400); Red Blood Cell Count 3.74 X10^6/uL (4.0-5.2); Red Cell Distribution Width 13.7 % (11.6-14.8); White Blood Cell Count 5.4 X10^3/uL (4.5-11.0)
[2020-04-13 17:13] LABS: Cholesterol 193 mg/dL (140-199); HDL Cholesterol 73 mg/dL (40-60); LDL Cholesterol Calculated 95 mg/dL (<100); Triglycerides 127 mg/dL (35-150)
[2020-04-13 17:13] LABS: BUN Creatinine Ratio 26.5 (6-22); Blood Urea Nitrogen 22 mg/dL (7-17); Calcium 9.2 mg/dL (8.4-10.2); Carbon Dioxide 27 mmol/L (22-32); Chloride 101 mmol/L (98-107); Estimated Glomerular Filt Rate > 60.0 mL/min (>60); Glucose 95 mg/dL (80-110); HEMOLYSIS < 15 (0-50); Potassium 4.4 mmol/L (3.4-5.1); Sodium 134 mmol/L (137-145)
[2020-04-13 18:01] LABS: Vitamin B12 937 pg/mL (239-931)
== END ==
PROVIDERS: PCP Family Medicine; Referring Provider Internal Medicine Cardiovascular Disease; Visit Provider Internal Medicine Cardiovascular Disease
DX: I48.19 Other persistent atrial fibrillation (principal); D75.89 Other specified diseases of blood and blood-forming organs; E78.5 Hyperlipidemia, unspecified
CPT/HCPCS: 36415; 80048; 80061; 82607; 85025

== ENCOUNTER → 2020-06-16 15:06 | Outpatient (CLI) | payer MEDICARE, SELFPAY ==
[2020-06-16 16:25] LABS: BUN Creatinine Ratio 22.5 (6-22); Blood Urea Nitrogen 20 mg/dL (7-17); Calcium 9.7 mg/dL (8.4-10.2); Carbon Dioxide 31 mmol/L (22-32); Chloride 100 mmol/L (98-107); Estimated Glomerular Filt Rate > 60.0 mL/min (>60); Glucose 101 mg/dL (80-110); HEMOLYSIS < 15 (0-50); Potassium 4.8 mmol/L (3.4-5.1); Sodium 135 mmol/L (137-145)
== END ==
PROVIDERS: PCP Family Medicine; Referring Provider Internal Medicine Cardiovascular Disease; Visit Provider Internal Medicine Cardiovascular Disease
DX: I10 Essential (primary) hypertension (principal)
CPT/HCPCS: 36415; 80048

== ENCOUNTER 2020-07-21 12:04 | Emergency (ER) | payer MEDICARE, SELFPAY ==
[2020-07-21] VITALS (7 sets, daily range): BP systolic 118–135; BP diastolic 69–88; PULSE 66–89; RESP 14–17; TEMP 36.4; O2SAT 98–99
--- NOTE | 2020-07-21 13:24 | ED.GENADULT ---
HPI - General Adult General Chief complaint: Dizziness Stated complaint: dizziness, disoriented Time Seen by Provider: 07/21/20 13:18 Source: patient Mode of arrival: Ambulatory Limitations: no limitations History of Present Illness HPI narrative: Patient is a 80-year-old female. Is on anticoagulation for persistent AFib here for evaluation of which he states his dizziness and disorientation. She states that last night she had a episode where she felt like her vision was blurred. She states that has since resolved. She is unsure exactly how long it lasted but it did go away before she went to bed last night. She is not currently having the symptoms. This is what she described as the ?dizziness? she also states she is disoriented. She describes this as having ?fog in my head? she does describe some ringing in her left ear. Otherwise has a negative review of system Related Data Home Medications Medication Instructions Recorded Confirmed apixaban 5 mg tablet 5 mg PO BID 06/05/20 06/05/20 celecoxib 200 mg capsule 200 mg PO DAILY 06/05/20 06/05/20 losartan 25 mg tablet 25 mg PO DAILY 06/05/20 06/05/20 Previous Rx's Medication Instructions Recorded metoprolol tartrate 25 mg PO BID #30 tab 02/04/20 valacyclovir 500 mg tablet 500 mg PO BID #15 tab 06/15/20 Allergies Allergy/AdvReac Type Severity Reaction Status Date / Time gluten Allergy Intermediate diarrhea Verified 07/21/20 12:18 Review of Systems Constitutional Constitutional: Denies fever(s), Denies headache(s) and Denies weakness Eyes Eyes: Reports blurry vision, Reports change in vision and Denies diplopia ENT Ears, Nose, Mouth, and Throat: Denies vertigo, Denies dizziness, Denies headache(s) and Denies disequilibrium Comments: Ringing in left ear Cardiovascular Cardiovascular: Denies chest pain and Denies dyspnea Respiratory Respiratory: Denies dyspnea Gastrointestinal Gastrointestinal: Denies abdominal pain, Denies nausea and Denies vomiting Genitourinary Genitourinary: Denies dysuria Genitourinary: Denies dysuria Musculoskeletal Musculoskeletal: Denies arthralgias, Denies myalgias, Denies numbness and Denies tingling Integumentary/Breasts Skin/Breast: Denies rash Neurologic Neurologic: Denies confusion, Denies vertigo, Denies dizziness, Denies headache(s), Denies localized weakness, Denies numbness, Denies tingling, Denies disequilibrium and Denies weakness Psychiatric Psychiatric: Denies confusion Hematologic/Lymphatic On Anticoagulants: Yes Allergic/Immunologic Allergic/Immunologic: Denies urticaria Patient History Medical History Atrial fibrillation Degenerative disc disease, lumbar Essential hypertension Macrocytosis Mild hyperlipidemia Osteopenia (10/15/10) Polio Spinal stenosis of lumbar region Squamous cell carcinoma of skin (02/16/15) Surgical History Status post ovarian cystectomy Family History Mother Breast cancer Sister Age: 79 Cervical cancer Father Rheumatoid arthritis Social History marital status: household members: spouse occupational status: previously employed Smoking Status: Former smoker Tobacco: How many years used: 20 second hand exposure: No alcohol intake: current (a glass of wine a day) substance use type: does not use Smoking Status: Former smoker alcohol intake frequency: 0-2 drinks per day Alcohol type: wine Substance Use Type: does not use Exam Initial Vital Signs Initial Vital Signs: Vital Signs Temperature 97.6 F 07/21/20 12:10 Pulse Rate 66 07/21/20 12:10 Respiratory Rate 14 07/21/20 12:10 Blood Pressure 118/88 07/21/20 12:10 Pulse Oximetry 99 07/21/20 12:10 Const General: cooperative, healthy appearing, comfortable and well developed Limitations: mental status not altered HENWV Head: normal to inspection and normocephalic Ears: TM's normal bilaterally Resp Effort & Inspection: normal respiratory effort Auscultation: clear to auscultation bilaterally Cardio Rate: regular rate Rhythm: abnormal rhythm Pulses: radial pulses present GI Inspection: non-distended Palpation: soft, No firm and No tender Skin Lesions: no lesions Rashes: no rashes Neuro General: patient alert, patient awake and patient oriented x3 Cranial Nerves: CN's II-XI intact bilaterally Cognition: normal cognition Speech: speech normal Gait: normal gait Motor: muscle tone normal throughout Sensory Exam: no sensory deficits noted Coordination: [id number] test normal Extrem General: normal to inspection and capillary refill normal Psych Appearance: grossly normal and well kempt Affect: normal affect Attitude: cooperative Scores GCS Alvarez coma scale eye opening: Spontaneous Alvarez coma scale verbal response: Orientated Edison coma scale motor response: Obey commands Alvarez coma scale total score: 15 Course Orders Ordered: ED Orders 07/21/20 12:40 EKG-12 Lead Stat 07/21/20 13:25 CT head/brain wo con Stat 07/21/20 13:30 Complete Blood Count AUTO DIFF Stat Comprehensive Metabolic Panel Stat Prothrombin Time INR Stat Troponin & CK Cardiac Panel Stat Vital Signs Vital signs: Vital Signs - 8 hr 07/21/20 12:10 07/21/20 13:13 07/21/20 13:14 Temperature 97.6 F Pulse Rate 66 75 70 Respiratory Rate 14 17 16 Blood Pressure 118/88 135/69 Pulse Oximetry 99 99 07/21/20 13:34 07/21/20 14:12 07/21/20 14:14 Temperature Pulse Rate 89 80 79 Respiratory Rate 16 16 Blood Pressure 128/74 128/85 Pulse Oximetry 99 98 07/21/20 14:30 Temperature Pulse Rate 79 Respiratory Rate Blood Pressure Pulse Oximetry 99 Medical Decision Making Lab Data Lab results reviewed: Yes I reviewed the patient's lab results. Result diagrams: 07/21/20 13:30 07/21/20 13:30 Labs: Lab Results 07/21/20 07/21/20 07/21/20 Range/Units 13:30 13:30 13:30 WBC 6.0 (4.5-11.0) X10^3/uL RBC 3.77 L (4.0-5.2) X10^6/uL Hgb 12.7 (12.0-16.0) g/dL Hct 37.8 (36-46) % MCV 100.5 H (80-100) fL MCH 33.7 (26-34) PG MCHC 33.5 (30-36) % RDW 12.7 (11.6-14.8) % Plt Count 270 (150-400) X10^3/uL Neut % (Auto) 63.0 (50-75) % Lymph % (Auto) 24.1 L (25-40) % [place] % (Auto) 9.5 (3-14) % Eos % (Auto) 2.9 (2-4) % Baso % (Auto) 0.5 (0-2) % Neut # (Auto) 3800 (9869-2742) /uL Lymph # (Auto) 1500 (4588-3779) /uL [place] # (Auto) 600 (0-900) /uL Eos # (Auto) 200 (0-450) /uL Baso # (Auto) 0 (0-100) /uL PT 16.9 H (10.1-12.7) SECONDS INR 1.5 H (0.9-1.3) Sodium 132 L (137-145) mmol/L Potassium 4.5 (3.4-5.1) mmol/L Chloride 99 (98-107) mmol/L Carbon Dioxide 29 (22-32) mmol/L BUN 13 (7-17) mg/dL Creatinine 0.79 (0.52-1.04) mg/dL Estimated GFR > 60.0 (>60) mL/min BUN/Creatinine Ratio 16.5 (6-22) Glucose 103 (80-110) mg/dL Calcium 9.2 (8.4-10.2) mg/dL Total Bilirubin 0.5 (0.2-1.3) mg/dL AST 31 (14-36) IU/L ALT 16 (<35) IU/L Alkaline Phosphatase 76 (38-126) U/L Total Creatine Kinase (30-135) U/L CK-MB (CK-2) CK-MB (CK-2) Rel Index Troponin I (0.01-0.034) ng/mL Total Protein 7.2 (6.3-8.2) g/dL Albumin 4.2 (3.5-5.0) g/dL Globulin 3.0 (1.7-4.1) g/dL Albumin/Globulin Ratio 1.4 (1.0-2.8) 07/21/20 Range/Units 13:30 WBC (4.5-11.0) X10^3/uL RBC (4.0-5.2) X10^6/uL Hgb (12.0-16.0) g/dL Hct (36-46) % MCV (80-100) fL MCH (26-34) PG MCHC (30-36) % RDW (11.6-14.8) % Plt Count (150-400) X10^3/uL Neut % (Auto) (50-75) % Lymph % (Auto) (25-40) % [place] % (Auto) (3-14) % Eos % (Auto) (2-4) % Baso % (Auto) (0-2) % Neut # (Auto) (0334-3065) /uL Lymph # (Auto) (1339-6176) /uL [place] # (Auto) (0-900) /uL Eos # (Auto) (0-450) /uL Baso # (Auto) (0-100) /uL PT (10.1-12.7) SECONDS INR (0.9-1.3) Sodium (137-145) mmol/L Potassium (3.4-5.1) mmol/L Chloride (98-107) mmol/L Carbon Dioxide (22-32) mmol/L BUN (7-17) mg/dL Creatinine (0.52-1.04) mg/dL Estimated GFR (>60) mL/min BUN/Creatinine Ratio (6-22) Glucose (80-110) mg/dL Calcium (8.4-10.2) mg/dL Total Bilirubin (0.2-1.3) mg/dL AST (14-36) IU/L ALT (<35) IU/L Alkaline Phosphatase (38-126) U/L Total Creatine Kinase 50 (30-135) U/L CK-MB (CK-2) TNP CK-MB (CK-2) Rel Index TNP Troponin I < 0.012 (0.01-0.034) ng/mL Total Protein (6.3-8.2) g/dL Albumin (3.5-5.0) g/dL Globulin (1.7-4.1) g/dL Albumin/Globulin Ratio (1.0-2.8) Urine Dip Bedside Urine Glucose Negative Bedside Urine Bilirubin - Negative Bedside Urine Ketone - Negative Urine Specific [place] 1.020 Bedside Urine Occult Blood - Negative Bedside Urine pH 6.0 Bedside Urine Protein - Negative Bedside Urine Urobilinogen +/- 1mg Bedside Urine Nitrite - Negative Bedside Urine Leukocytes - Negative Esterase Point of care testing: Urine Dip Bedside Urine Glucose Negative Bedside Urine Bilirubin - Negative Bedside Urine Ketone - Negative Urine Specific [place] 1.020 Bedside Urine Occult Blood - Negative Bedside Urine pH 6.0 Bedside Urine Protein - Negative Bedside Urine Urobilinogen +/- 1mg Bedside Urine Nitrite - Negative Bedside Urine Leukocytes - Negative Esterase Imaging Data CT scan - head: Radiologist's Impression: [address] [id number] Scan ReportSigned Patient: Yris Nichols#: [id number]: 2Acct:[id number]/Sex: 80 / FDate of Service: 07/21/20Loc: EDAccession Number: [id number] Procedure: CT head/brain wo con Ordering Provider: Swapnil Hanna D.O. PROCEDURE: CT HEAD/BRAIN WO CON INDICATIONS: Confusion on blood thinners TECHNIQUE: Noncontrast 4.5 mm thick angled axial sections acquired from the foramen magnum to the vertex, with coronal and sagittal reformats. For radiation dose reduction, the following was used: automated exposure control, adjustment of mA and/or kV according to patient size. COMPARISON: None. FINDINGS: Image quality: Excellent. CSF spaces: Basal cisterns are patent. No extra-axial fluid collections. The ventricles are symmetric in size and shape. Brain: No intracranial bleeds or masses. There is cerebral volume loss for age, with resultant ventricular and sulcal prominence. There are periventricular and deep white matter chronic small vessel ischemic changes. There is intracranial internal carotid artery atherosclerosis. Skull and face: Calvarium and visualized facial bones appear intact, without suspicious lesions. Sinuses: Visualized sinuses and mastoids are clear. IMPRESSION: No acute intracranial disease process. Dictated by: Tiffanie Gates MD, PhD on 07/21/2020 at 13:40 Approved by: Tiffanie Gates MD, PhD on 07/21/2020 at 13:42 ECG Data Attestation: I personally reviewed and interpreted this ECG as follows: Prior ECG tracings: not available for review Interpretation: Atrial fibrillation Ventricular rate is 64 One PVC MDM Narrative Medical decision making narrative: Patient has a normal neurologic exam here in the emergency department. Her head CT is unremarkable. She is in atrial fibrillation but this is not new for her. She is on anticoagulation. Low suspicion for CVA. Low suspicion for TIA. Feel we can hold on further workup for now. We did discuss use of decongestants at home as she does somewhat feel like she is congested in her sinuses. She was given return precautions and follow-up instructions. She expressed understanding and agreement. Discharge Plan Departure Patient Disposition: Home Clinical Impression: Lightheadedness Instructions: DI for Dizziness-Nonvertigo Activity Restrictions/Additional Instructions: Your workup here in the emergency department is very reassuring. I recommend that you continue all of your medications as directed. I do recommend that you contact your primary provider for a follow-up. Also recommend starting a antihistamine such as Claritin. You can purchase this [id number]. Return to the emergency department for any new or worsening symptoms Prescriptions: No Action valacyclovir 500 mg tablet 500 mg PO BID Qty: 15 RF: 0 Eliquis 5 mg tablet 5 mg PO BID RF: 0 losartan 25 mg tablet 25 mg PO DAILY RF: 0 celecoxib [Celebrex] 200 mg capsule 200 mg PO DAILY RF: 0 metoprolol tartrate 25 mg tablet 25 mg PO BID Qty: 30 RF: 0 Referrals: Fior Leslie DO [Primary Care Provider] -
--- NOTE | 2020-07-21 13:32 | PC.NURSE ---
No other neuro sx noted, pt strong in all extremities and normal sensation.
[2020-07-21 13:41] LABS: Add Manual Diff / Slide Review NO; Basophils Absolute Auto 0 /uL (0-100); Basophils Percent Auto 0.5 % (0-2); Eosinophils Absolute Auto 200 /uL (0-450); Eosinophils Percent Auto 2.9 % (2-4); Hematocrit 37.8 % (36-46); Hemoglobin 12.7 g/dL (12.0-16.0); Lymphocytes Absolute Auto 1500 /uL (1100-4500); Lymphocytes Percent Auto 24.1 % (25-40); Mean Corpuscular HGB Conc 33.5 % (30-36); Mean Corpuscular Hemoglobin 33.7 PG (26-34); Mean Corpuscular Volume 100.5 fL (80-100); Monocytes Absolute Auto 600 /uL (0-900); Monocytes Percent Auto 9.5 % (3-14); Neutrophils Absolute Auto 3800 /uL (1500-7000); Platelet Count 270 X10^3/uL (150-400); Red Blood Cell Count 3.77 X10^6/uL (4.0-5.2); Red Cell Distribution Width 12.7 % (11.6-14.8)
[2020-07-21 13:46] LABS: INR 1.5 (0.9-1.3); Prothrombin Time 16.9 SECONDS (10.1-12.7)
[2020-07-21 13:51] LABS: Alanine Aminotransferase 16 IU/L (<35); Albumin 4.2 g/dL (3.5-5.0); Albumin Globulin Ratio 1.4 (1.0-2.8); Alkaline Phosphatase 76 U/L (38-126); Aspartate Aminotransferase 31 IU/L (14-36); BUN Creatinine Ratio 16.5 (6-22); Bilirubin Total 0.5 mg/dL (0.2-1.3); Blood Urea Nitrogen 13 mg/dL (7-17); Calcium 9.2 mg/dL (8.4-10.2); Carbon Dioxide 29 mmol/L (22-32); Chloride 99 mmol/L (98-107); Creatine Kinase 50 U/L (30-135); Estimated Glomerular Filt Rate > 60.0 mL/min (>60); Glucose 103 mg/dL (80-110); HEMOLYSIS < 15 (0-50); Potassium 4.5 mmol/L (3.4-5.1); Sodium 132 mmol/L (137-145); Total Protein 7.2 g/dL (6.3-8.2)
[2020-07-21 14:02] LABS: Troponin I < 0.012 ng/mL (0.01-0.034)
== END 2020-07-21 14:46 | disposition home or self-care (01) ==
PROVIDERS: Emergency Provider Emergency Medicine; PCP Family Medicine
DX: R42 Dizziness and giddiness (principal); R41.0 Disorientation, unspecified; I48.91 Unspecified atrial fibrillation; Z79.01 Long term (current) use of anticoagulants; H53.8 Other visual disturbances
CPT/HCPCS: 36415; 70450; 80053; 81003; 82550; 84484; 85025; 85610; 93005; 99284

== ENCOUNTER → 2020-07-22 14:50 | Outpatient (CLI) | payer MEDICARE, SELFPAY ==
[2020-07-25 12:39] LABS: Fecal Immunochemical Test Negative (Negative)
== END ==
PROVIDERS: PCP Family Medicine; Referring Provider Family Medicine; Visit Provider Family Medicine
DX: Z12.11 Encounter for screening for malignant neoplasm of colon (principal)
CPT/HCPCS: 82274

== ENCOUNTER → 2020-08-28 16:49 | Outpatient (CLI) | payer MEDICARE, SELFPAY ==
[2020-08-28 17:17] LABS: Add Manual Diff / Slide Review NO; Basophils Absolute Auto 0 /uL (0-100); Basophils Percent Auto 0.4 % (0-2); Eosinophils Absolute Auto 200 /uL (0-450); Eosinophils Percent Auto 2.6 % (2-4); Hemoglobin 12.8 g/dL (12.0-16.0); Lymphocytes Absolute Auto 1900 /uL (1100-4500); Lymphocytes Percent Auto 28.5 % (25-40); Mean Corpuscular HGB Conc 32.9 % (30-36); Mean Corpuscular Hemoglobin 32.9 PG (26-34); Mean Corpuscular Volume 100.2 fL (80-100); Monocytes Absolute Auto 800 /uL (0-900); Monocytes Percent Auto 11.4 % (3-14); Neutrophils Absolute Auto 3900 /uL (1500-7000); Neutrophils Percent Auto 57.1 % (50-75); Platelet Count 281 X10^3/uL (150-400); Red Blood Cell Count 3.89 X10^6/uL (4.0-5.2); White Blood Cell Count 6.8 X10^3/uL (4.5-11.0)
[2020-08-28 17:34] LABS: Alanine Aminotransferase 20 IU/L (<35); Albumin 4.6 g/dL (3.5-5.0); Albumin Globulin Ratio 1.5 (1.0-2.8); Alkaline Phosphatase 83 U/L (38-126); Aspartate Aminotransferase 36 IU/L (14-36); BUN Creatinine Ratio 22.5 (6-22); Bilirubin Total 0.4 mg/dL (0.2-1.3); Blood Urea Nitrogen 18 mg/dL (7-17); C-Reactive Protein Quant 0.6 mg/dL (<1.0); Calcium 9.9 mg/dL (8.4-10.2); Carbon Dioxide 26 mmol/L (22-32); Chloride 100 mmol/L (98-107); Estimated Glomerular Filt Rate > 60.0 mL/min (>60); Globulin 3.1 g/dL (1.7-4.1); Glucose 102 mg/dL (80-110); HEMOLYSIS < 15 (0-50); Potassium 4.3 mmol/L (3.4-5.1); Sodium 133 mmol/L (137-145); Total Protein 7.7 g/dL (6.3-8.2)
[2020-08-28 17:39] LABS: Erythrocyte Sedimentation Rate 12 MM/HR (0-20)
[2020-08-29 22:51] LABS: Tissue Transglutaminase IgA <2 U/mL (0-3); Tissue Transglutaminase IgG <2 U/mL (0-5)
== END ==
PROVIDERS: PCP Family Medicine; Referring Provider Family Medicine; Visit Provider Family Medicine
DX: D75.89 Other specified diseases of blood and blood-forming organs (principal); R19.7 Diarrhea, unspecified; R74.01 Elevation of levels of liver transaminase levels
CPT/HCPCS: 36415; 80053; 83516; 85025; 85651; 86140

== ENCOUNTER → 2020-08-28 17:08 | Outpatient (CLI) | payer MEDICARE, SELFPAY ==
--- NOTE | 2020-08-28 17:10 | DI.MRI.S_ITS ---
PROCEDURE: MR LUMBAR SPINE WO CON INDICATIONS: lumbar stenosis, last mri 2019, ortho surgeon requires updat TECHNIQUE: Noncontrast sagittal T1 spin echo and T2 fast echo, sagittal STIR, axial T1 and T2 fast spin echo through the lumbar spine. In cases with scoliosis, additional coronal T2 fast spin echo may be performed. COMPARISON: [facility], MR, MR LUMBAR SPINE WO CON, 03/15/2019, 16:24. FINDINGS: Image quality: Excellent. Alignment and Curvature: There is normal bony alignment. Bone Marrow: Marrow is of normal overall signal. No acute vertebral body compression fractures. Spinal Cord: Conus medullaris terminates at the L1 level. Visualized cord demonstrates normal signal and size. Paraspinous Soft Tissues: No paravertebral masses. T12-L1: Normal appearance except for slight disc desiccation L1-L2: Normal appearance except for slight disc desiccation. L2-L3: Normal appearance except for slight disc desiccation and a minimal posterior disc bulge, and a slight degree of symmetric facet osteoarthritis... L3-L4: There is mild degenerative disc disease with mild disc height reduction, mild disc desiccation, a mild posterior transverse disc bulge, and mild to moderate facet osteoarthritis. There is secondary mild neural foraminal narrowing, without definite nerve root impingement at time of imaging.. L4-L5: The degenerative disc height reduction, facet osteoarthritis, and ligamentum flavum hypertrophy appeared of mildly worsened from the comparison study 03/15/19. This allows a slightly greater degree of anterolisthesis of L4 on L5, grade 2, and there is relatively prominent reactive ligamentum flavum hypertrophy. Facet hyperostosis impinges on the neural foramen as does the subluxation, and overall there is worsening severe spinal stenosis at this level with only a small fraction of the thecal sac remaining visible. Both L4 nerve roots are considered severely impinged upon as is the thecal sac. L5-S1: Mild degenerative disc height reduction and disc dehydration. A slight posterior disc bulge is present, facet osteoarthritis is moderate and there is only mild left greater than right impingement by facet hyperostosis on the neural foramen. IMPRESSION: A small degree of worsening degenerative disc disease and facet osteoarthritis is present most pronounced at L4-5 where prior grade 2 anterolisthesis of L4 on L5 has been documented by MR scanning in February of 2019. This area shows very severe spinal and foraminal stenosis, which has progressed from 2019 to a mild degree. No disc herniation is found. Additional areas of foraminal stenosis and degenerative disc disease are present as detailed by level in the body of the report above. Dictated by: Fermin Muller M.D. on 08/29/2020 at 15:23 Approved by: Fermin Muller M.D. on 08/29/2020 at 15:33
== END ==
PROVIDERS: PCP Family Medicine; Referring Provider Family Medicine; Visit Provider Family Medicine
DX: M48.061 Spinal stenosis, lumbar region without neurogenic claudication (principal); M51.36 Other intervertebral disc degeneration, lumbar region; D75.89 Other specified diseases of blood and blood-forming organs; R19.7 Diarrhea, unspecified; R74.01 Elevation of levels of liver transaminase levels
CPT/HCPCS: 36415; 72148; 80053; 83516; 85025; 85651; 86140

== ENCOUNTER → 2020-09-01 13:07 | Outpatient (CLI) | payer MEDICARE, SELFPAY ==
[2020-09-01] MEDS: COVID-19 VACC, Ad26(JANSSEN)/PF 0.5 ML IM (13:15)
== END ==
PROVIDERS: PCP Family Medicine; Visit Provider Internal Medicine
DX: Z23 Encounter for immunization (principal)
CPT/HCPCS: 0031A; 91303

== ENCOUNTER → 2020-09-19 16:49 | Outpatient (CLI) | payer MEDICARE, SELFPAY ==
[2020-09-21 14:13] LABS: Calprotectin, Stool 32 ug/g (0-120)
== END ==
PROVIDERS: PCP Family Medicine; Referring Provider Family Medicine; Visit Provider Family Medicine
DX: D75.89 Other specified diseases of blood and blood-forming organs (principal); R19.7 Diarrhea, unspecified; R74.01 Elevation of levels of liver transaminase levels
CPT/HCPCS: 83993

== ENCOUNTER → 2020-11-16 12:02 | Outpatient (CLI) | payer MEDICARE, SELFPAY ==
[2020-11-16 13:33] LABS: Add Manual Diff / Slide Review NO; Basophils Absolute Auto 0 /uL (0-100); Basophils Percent Auto 0.4 % (0-2); Eosinophils Absolute Auto 100 /uL (0-450); Eosinophils Percent Auto 1.8 % (2-4); Hematocrit 38.3 % (36-46); Hemoglobin 12.9 g/dL (12.0-16.0); Lymphocytes Absolute Auto 2100 /uL (1100-4500); Lymphocytes Percent Auto 31.8 % (25-40); Mean Corpuscular HGB Conc 33.6 % (30-36); Mean Corpuscular Volume 101.1 fL (80-100); Monocytes Absolute Auto 600 /uL (0-900); Monocytes Percent Auto 9.4 % (3-14); Neutrophils Absolute Auto 3800 /uL (1500-7000); Neutrophils Percent Auto 56.6 % (50-75); Platelet Count 257 X10^3/uL (150-400); Red Blood Cell Count 3.79 X10^6/uL (4.0-5.2); Red Cell Distribution Width 13.9 % (11.6-14.8); White Blood Cell Count 6.6 X10^3/uL (4.5-11.0)
== END ==
PROVIDERS: PCP Family Medicine; Referring Provider Family Medicine; Visit Provider Family Medicine
DX: Z01.818 Encounter for other preprocedural examination (principal)
CPT/HCPCS: 36415; 85025; 93005; 93010

== ENCOUNTER → 2020-11-22 14:41 | Outpatient (CLI) | payer MEDICARE, SELFPAY ==
--- NOTE | 2020-11-22 15:04 | DI.RAD.S_ITS ---
PROCEDURE: XR CHEST 2V INDICATIONS: pre procedure prior to spinal surgury TECHNIQUE: 2 views of the chest were acquired. COMPARISON: [facility], , XR CHEST 1V, 02/04/2020, 16:28. FINDINGS: Surgical changes and devices: None. Lungs and pleura: Lungs are clear. No pleural effusions or pneumothorax. Mediastinum: Mediastinal contours are normal. Heart size is normal. Bones and chest wall: No suspicious bony abnormalities. Soft tissues appear unremarkable. IMPRESSION: Normal chest x-ray Dictated by: Tate Denise M.D. on 11/22/2020 at 17:48 Approved by: Tate Denise M.D. on 11/22/2020 at 17:49
== END ==
PROVIDERS: PCP Family Medicine; Referring Provider Nurse Practitioner; Visit Provider Nurse Practitioner
DX: Z01.811 Encounter for preprocedural respiratory examination; M19.90 Unspecified osteoarthritis, unspecified site; M54.9 Dorsalgia, unspecified; M43.16 Spondylolisthesis, lumbar region
CPT/HCPCS: 71046; 77080

== ENCOUNTER → 2020-12-02 10:02 | Outpatient (CLI) | payer MEDICARE, SELFPAY ==
[2020-12-02 11:51] LABS: COVID-19 CEPHEID PCR (VTM/NP) Negative (Negative)
== END ==
PROVIDERS: PCP Family Medicine; Referring Provider Physician Assistant; Visit Provider Physician Assistant
DX: Z20.822 Contact with and (suspected) exposure to COVID-19 (principal)
CPT/HCPCS: C9803; U0003

== ENCOUNTER → 2021-03-06 17:49 | Outpatient (CLI) | payer MEDICARE, SELFPAY ==
--- NOTE | 2021-03-06 | DI.MG.S_ITS ---
BILATERAL DIGITAL SCREENING MAMMOGRAM 3D/2D WITH CAD: 03/06/2021 CLINICAL: Routine screening. Family history of breast cancer. Comparison is made to exams dated: 02/26/2020 mammogram, 11/16/2018 mammogram, and 11/04/2017 mammogram - [facility]. The tissue of both breasts is extremely dense, which lowers the sensitivity of mammography. Current study was also evaluated with a Computer Aided Detection (CAD) system. No significant masses, calcifications, or other findings are seen in either breast. There has been no significant interval change. IMPRESSION: NEGATIVE There is no mammographic evidence of malignancy. A 1 year screening mammogram is recommended. This exam was interpreted at Station ID: [id number]. NOTE: For mammograms, a report in lay terms will be sent to the patient. Approximately 15% of breast malignancies will not be visualized mammographically. In the management of a palpable breast mass, a negative mammogram must not discourage biopsy of a clinically suspicious lesion. Electronically Signed By: Toby hernandez/mik:03/07/2021 08:08:39 letter sent: Normal Exam ACR BI-RADS Category 1: Negative 3341F
== END ==
PROVIDERS: PCP Family Medicine; Referring Provider Family Medicine; Visit Provider Family Medicine
DX: Z12.31 Encounter for screening mammogram for malignant neoplasm of breast (principal); Z80.3 Family history of malignant neoplasm of breast
CPT/HCPCS: 77063; 77067

== ENCOUNTER → 2021-03-27 14:28 | Outpatient (CLI) | payer MEDICARE, SELFPAY | PROVIDERS: PCP Family Medicine; Visit Provider Nurse Practitioner Family | DX: R30.9 Painful micturition, unspecified (principal) | CPT/HCPCS: 87077; 87086; 87186 ==

== ENCOUNTER → 2021-05-14 14:36 | Outpatient (CLI) | payer MEDICARE, SELFPAY ==
[2021-05-14 16:39] LABS: COVID19 -Nasal RAPID Negative (Negative)
== END ==
PROVIDERS: PCP Family Medicine; Visit Provider Physician Assistant
DX: Z20.822 Contact with and (suspected) exposure to COVID-19 (principal)
CPT/HCPCS: 87635; C9803

== ENCOUNTER → 2021-05-15 07:50 | Outpatient (CLI) | payer MEDICARE, SELFPAY ==
--- NOTE | 2021-05-15 18:03 | DI.NM.S_ITS ---
PROCEDURE PERFORMED: Exercise treadmill stress and rest myocardial perfusion imaging with gating to assess ejection fraction and regional wall motion. DATE OF SERVICE: May 15, 2021 ORDERING PROVIDER: Rhea Kunz MD INDICATIONS: The patient is a 80-year-old female with recently discovered persistent atrial fibrillation and exertional dyspnea. CARDIAC STRESS: The patient was able to exercise for 8 minutes 11 seconds suggesting excellent exercise capacity with an SAMEER of -42%. She had an accelerated heart rate response to exercise with a resting heart rate of 118 bpm after withholding her beta-blockers for the previous 24 hours. Her heart rate increased to a maximum of 167 BPM (118% of her predicted maximum). She had a normal blood pressure response and had no chest discomfort or anginal symptoms. Her resting ECG shows atrial fibrillation with mild, nonspecific baseline ST-segment abnormalities. With exercise, there is slight accentuation of the ST-segment abnormalities, but this remains nonspecific given the baseline abnormality. The patient remained in atrial fibrillation throughout with only rare isolated PVCs in recovery but no other arrhythmias. At 7 minutes of exercise at a heart rate of 157 BPM, 25.2 millicuries of technetium-99m Myoview was injected and she was subsequently imaged using a gated SPECT acquisition protocol. Earlier in the day, she had been injected with 11.9 millicuries of technetium-99m Myoview while at rest was imaged 20 minutes later, again using a gated SPECT acquisition protocol. FINDINGS: RAW DATA: There is good myocardial tracer uptake. There is no significant breast shadows Lung/heart ratio is normal at 0.35. TID ratio is normal at 0.84. QUANTITATED GATED SPECT: Post-stress ejection fraction is estimated at 74% without any focal wall motion abnormality. Resting ejection fraction is 71% with a normal resting end-diastolic volume of 65 mL. MYOCARDIAL PERFUSION SCAN: Post-stress supine images show a uniform pattern of tracer activity without any perfusion defects, supported by normal perfusion imaging in the prone position. The resting images show an identical perfusion pattern without any areas of improvement. IMPRESSION: 1. Normal myocardial perfusion study. 2. No evidence of myocardial ischemia or previous myocardial infarction. 3. Normal left ventricular systolic function without any focal wall motion abnormality. 4. Excellent exercise capacity without angina or significant ECG evidence of ischemia. She had atrial fibrillation with a mildly elevated heart rate at rest and an accentuated heart rate response to exercise, likely due to beta blockade withdrawl, but no other arrhythmias except for rare isolated PVCs. Lupis Nichols - NARA/gerry/jannette doc#: [id number]/job#: [id number] dd: 05/15/2021 17:10:00 dt: 05/15/2021 17:48:00 DICTATING MD/COPIES TO: Richie Cordero MD; Rhea Kunz MD COPIES MNE: HOANG;
== END ==
PROVIDERS: PCP Family Medicine; Referring Provider Internal Medicine Cardiovascular Disease; Visit Provider Internal Medicine Cardiovascular Disease
DX: I48.19 Other persistent atrial fibrillation (principal); R07.89 Other chest pain; R06.00 Dyspnea, unspecified
CPT/HCPCS: 78452; 93017; A9502

== ENCOUNTER → 2021-05-30 11:05 | Outpatient (CLI) | payer MEDICARE, SELFPAY ==
[2021-05-30 11:30] LABS: Add Manual Diff / Slide Review NO; Basophils Absolute Auto 0 /uL (0-100); Basophils Percent Auto 0.6 % (0-2); Eosinophils Absolute Auto 100 /uL (0-450); Eosinophils Percent Auto 1.7 % (2-4); Hematocrit 38.9 % (36-46); Hemoglobin 13.3 g/dL (12.0-16.0); Lymphocytes Absolute Auto 1700 /uL (1100-4500); Lymphocytes Percent Auto 32.2 % (25-40); Mean Corpuscular HGB Conc 34.1 % (30-36); Mean Corpuscular Hemoglobin 33.3 PG (26-34); Mean Corpuscular Volume 97.8 fL (80-100); Monocytes Absolute Auto 500 /uL (0-900); Monocytes Percent Auto 9.8 % (3-14); Neutrophils Absolute Auto 3000 /uL (1500-7000); Neutrophils Percent Auto 55.7 % (50-75); Platelet Count 289 X10^3/uL (150-400); Red Blood Cell Count 3.98 X10^6/uL (4.0-5.2); Red Cell Distribution Width 13.8 % (11.6-14.8); White Blood Cell Count 5.4 X10^3/uL (4.5-11.0)
[2021-05-30 13:03] LABS: BUN Creatinine Ratio 15.9 (6-22); Blood Urea Nitrogen 13 mg/dL (7-17); Calcium 9.7 mg/dL (8.4-10.2); Carbon Dioxide 29 mmol/L (22-32); Chloride 100 mmol/L (98-107); Cholesterol 209 mg/dL (140-199); Estimated Glomerular Filt Rate > 60.0 mL/min (>60); Glucose 107 mg/dL (80-110); HDL Cholesterol 86 mg/dL (40-60); HEMOLYSIS < 15 (0-50); LDL Cholesterol Calculated 108 mg/dL (<100); Potassium 4.5 mmol/L (3.4-5.1); Sodium 136 mmol/L (137-145); Triglycerides 75 mg/dL (35-150)
== END ==
PROVIDERS: PCP Family Medicine; Referring Provider Internal Medicine Cardiovascular Disease; Visit Provider Internal Medicine Cardiovascular Disease
DX: I10 Essential (primary) hypertension (principal); Z79.01 Long term (current) use of anticoagulants; I48.19 Other persistent atrial fibrillation
CPT/HCPCS: 36415; 80048; 80061; 85025

== ENCOUNTER → 2021-07-09 14:37 | Outpatient (CLI) | payer MEDICARE, SELFPAY ==
--- NOTE | 2021-07-09 14:41 | DI.RAD.S_ITS ---
PROCEDURE: XR LUMBAR SPINE MIN 4V INDICATIONS: S/P LUMBAR FUSION TECHNIQUE: 4 views of the lumbar spine were acquired, including bilateral oblique views. COMPARISON: [facility], , XR LUMBAR SPINE 2-3V, 12/14/2018, 10:36. FINDINGS: Bones: 5 nonrib-bearing vertebrae are present. There is interval transpedicular fusion at L4-5 level with posterior fusion hardware and intervertebral spacer in place. There is normal bony alignment. No gross hardware loosening or failure. No vertebral body compression fractures. No suspicious bony lesions. Soft tissues: Overlying bowel gas pattern is normal. No suspicious soft tissue calcifications. Oblique images: No pars defects. IMPRESSION: Post fusion changes at L4-5 level with improved lumbar spine alignment. No gross hardware loosening or failure. No acute compression fracture or significant spondylolisthesis. No pars defects on oblique views. Dictated by: Mikey Burton M.D. on 07/09/2021 at 16:52 Approved by: Mikey Burton M.D. on 07/09/2021 at 16:53
== END ==
PROVIDERS: PCP Family Medicine; Referring Provider Nurse Practitioner; Visit Provider Nurse Practitioner
DX: Z98.1 Arthrodesis status (principal); Z09 Encounter for follow-up examination after completed treatment for conditions other than malignant neoplasm
CPT/HCPCS: 72110

== ENCOUNTER → 2021-10-18 16:13 | Outpatient (CLI) | payer MEDICARE, SELFPAY ==
[2021-10-18 18:28] LABS: Erythrocyte Sedimentation Rate 16 MM/HR (0-20)
[2021-10-18 18:40] LABS: C-Reactive Protein Quant 0.7 mg/dL (<1.0)
[2021-10-18 18:50] LABS: Creatinine Urine Random 76.1 mg/dL
[2021-10-18 19:06] LABS: Microalbumin Urine Random < 0.6 mg/dL (0-1.6); TSH w/ Reflex to FT4 1.67 uIU/mL (0.47-4.68)
[2021-10-19 16:27] LABS: Deamidated Gliadin Ab IgA 6 units (0-19); Deamidated Gliadin Ab IgG <1 units (0-19); Immunoglobulin A,Qn 422 mg/dL (64-422); t-Transglutaminase IgA <2 U/mL (0-3)
[2021-10-20 13:17] LABS: ANA Screen, IFA Negative (.)
== END ==
PROVIDERS: PCP Family Medicine; Referring Provider Family Medicine; Visit Provider Family Medicine
DX: I10 Essential (primary) hypertension (principal); K52.9 Noninfective gastroenteritis and colitis, unspecified; M79.641 Pain in right hand; M79.642 Pain in left hand; Z82.61 Family history of arthritis; L65.9 Nonscarring hair loss, unspecified
CPT/HCPCS: 36415; 82043; 82570; 82784; 83516; 84443; 85651; 86038; 86140

== ENCOUNTER → 2021-12-11 11:14 | Outpatient (CLI) | payer MEDICARE, SELFPAY ==
[2021-12-11 12:21] LABS: COVID19 -Nasal RAPID Negative (Negative)
== END ==
PROVIDERS: PCP Family Medicine; Visit Provider Physician Assistant
DX: Z20.822 Contact with and (suspected) exposure to COVID-19 (principal)
CPT/HCPCS: 87635

== ENCOUNTER → 2022-03-18 15:47 | Outpatient (CLI) | payer MEDICARE, SELFPAY ==
--- NOTE | 2022-03-18 | DI.MG.S_ITS ---
BILATERAL DIGITAL SCREENING MAMMOGRAM 3D/2D WITH CAD: 03/18/2022 CLINICAL: Routine screening. Family history of breast cancer. Comparison is made to exams dated: 03/06/2021 mammogram, 02/26/2020 mammogram, and 11/16/2018 mammogram - [facility]. Both breasts are heterogeneously dense, which may obscure small masses (category c / 51-75% glandular tissue). Current study was also evaluated with a Computer Aided Detection (CAD) system. No significant masses, calcifications, or other findings are seen in either breast. There has been no significant interval change. IMPRESSION: NEGATIVE There is no mammographic evidence of malignancy. A 1 year screening mammogram is recommended. Based on the Tyrer Cuzick model (a risk assessment model) the patient's lifetime risk is 2.6% and her 10 year risk is 0.0%. According to the ACR, ACS, and NCCN guidelines, an annual breast MRI exam along with mammogram is recommended if the patient's lifetime risk is 20% or greater. This exam was interpreted at Station ID: [id number]. NOTE: For mammograms, a report in lay terms will be sent to the patient. Approximately 15% of breast malignancies will not be visualized mammographically. In the management of a palpable breast mass, a negative mammogram must not discourage biopsy of a clinically suspicious lesion. Electronically Signed By: Vamsi alaniz/mik:03/19/2022 08:45:45 letter sent: Normal Exam ACR BI-RADS Category 1: Negative 3341F
== END ==
PROVIDERS: PCP Family Medicine; Referring Provider Family Medicine; Visit Provider Family Medicine
DX: Z12.31 Encounter for screening mammogram for malignant neoplasm of breast (principal); Z80.3 Family history of malignant neoplasm of breast
CPT/HCPCS: 77063; 77067

== ENCOUNTER → 2022-04-25 16:34 | Outpatient (CLI) | payer MEDICARE, SELFPAY ==
--- NOTE | 2022-04-25 16:36 | DI.RAD.S_ITS ---
PROCEDURE: XR WRIST LT MIN 3V INDICATIONS: left wrist pain TECHNIQUE: 4 views of the wrist were acquired. COMPARISON: [facility], CR, XR HAND LT MIN 3V, 04/25/2022, 17:40. FINDINGS: Bones: No fractures or dislocations. No suspicious bony lesions. 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 Scaphoid view: Intact scaphoid. Bony lucency along the distal pole of the scaphoid. Soft tissues: No suspicious soft tissue calcifications. IMPRESSION: 1. 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 2. Subchondral cyst versus bony erosion involving the distal pole of scaphoid. Dictated by: Rashaad Barrett [facility] Interpreted: Lemuel Khan MD on 04/25/2022 at 16:53 Transcribed by: SONG on 04/25/2022 at 16:54 Approved by: Ronnell Khan M.D. on 04/29/2022 at 12:26
--- NOTE | 2022-04-25 16:36 | DI.RAD.S_ITS ---
PROCEDURE: XR HAND LT MIN 3V INDICATIONS: left wrist pain TECHNIQUE: 3 views of the hand(s) acquired. COMPARISON: , , HAND 3V LEFT, 06/15/2014, 15:49. FINDINGS: Bones: No fractures or dislocations. Carpal bones are normally aligned. No suspicious bony lesions. Polyarticular joint space narrowing with periarticular osteophyte formation, most notably and severe involving the 1st CMC joint as well as the 2nd and 3rd DIP joints. Soft tissues: No suspicious soft tissue calcifications. 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 Dictated by: Rashaad Barrett [facility] Interpreted: Lemuel Khan MD on 04/25/2022 at 16:52 Transcribed by: SONG on 04/25/2022 at 16:53 Approved by: Ronnell Khan M.D. on 04/29/2022 at 12:25
== END ==
PROVIDERS: PCP Family Medicine; Referring Provider Physician Assistant Medical; Visit Provider Physician Assistant Medical
DX: M18.12 Unilateral primary osteoarthritis of first carpometacarpal joint, left hand (principal); M19.042 Primary osteoarthritis, left hand; M25.532 Pain in left wrist
CPT/HCPCS: 73110; 73130

== ENCOUNTER → 2022-05-03 13:25 | Outpatient (CLI) | payer MEDICARE, SELFPAY ==
[2022-05-03 14:03] LABS: Add Manual Diff / Slide Review NO; Basophils Absolute Auto 0 /uL (0-100); Basophils Percent Auto 0.5 % (0-2); Eosinophils Absolute Auto 100 /uL (0-450); Eosinophils Percent Auto 0.7 % (2-4); Hematocrit 33.7 % (36-46); Hemoglobin 11.4 g/dL (12.0-16.0); Lymphocytes Absolute Auto 1700 /uL (1100-4500); Lymphocytes Percent Auto 19.4 % (25-40); Mean Corpuscular HGB Conc 33.9 % (30-36); Mean Corpuscular Volume 94.2 fL (80-100); Monocytes Absolute Auto 600 /uL (0-900); Monocytes Percent Auto 7.3 % (3-14); Neutrophils Absolute Auto 6300 /uL (1500-7000); Neutrophils Percent Auto 72.1 % (50-75); Platelet Count 780 X10^3/uL (150-400); Red Blood Cell Count 3.58 X10^6/uL (4.0-5.2); Red Cell Distribution Width 12.7 % (11.6-14.8); White Blood Cell Count 8.7 X10^3/uL (4.5-11.0)
[2022-05-03 14:04] LABS: INR 2.2 (0.9-1.3); Prothrombin Time 25.1 SECONDS (10.1-12.7)
[2022-05-03 14:07] LABS: PTT Partial Thromboplastin Tim 35 SECONDS (26-36)
[2022-05-03 14:22] LABS: Erythrocyte Sedimentation Rate 96 MM/HR (0-20)
[2022-05-03 14:26] LABS: RBC Morphology Normal Morphology
[2022-05-03 15:25] LABS: C-Reactive Protein Quant 8.9 mg/dL (<1.0)
[2022-05-03 15:46] LABS: Rheumatoid Factor < 8.6 IU/mL (<12.0)
[2022-05-03 15:51] LABS: TSH w/ Reflex to FT4 2.06 uIU/mL (0.47-4.68)
[2022-05-03 17:14] LABS: Alanine Aminotransferase 16 IU/L (<35); Albumin 3.5 g/dL (3.5-5.0); Albumin Globulin Ratio 1.1 (1.0-2.8); Alkaline Phosphatase 161 U/L (38-126); Aspartate Aminotransferase 22 IU/L (14-36); Bilirubin Total 0.4 mg/dL (0.2-1.3); Blood Urea Nitrogen 9 mg/dL (7-17); Calcium 9.3 mg/dL (8.4-10.2); Carbon Dioxide 26 mmol/L (22-32); Chloride 97 mmol/L (98-107); Estimated Glomerular Filt Rate > 60 mL/min (>60); Globulin 3.2 g/dL (1.7-4.1); Glucose 104 mg/dL (80-110); HEMOLYSIS < 15 (0-50); Lactate Dehydrogenase 124 U/L (120-246); Potassium 4.4 mmol/L (3.4-5.1); Sodium 134 mmol/L (137-145); Total Protein 6.7 g/dL (6.3-8.2)
== END ==
PROVIDERS: PCP Family Medicine; Referring Provider Physician Assistant Medical; Visit Provider Physician Assistant Medical
DX: I10 Essential (primary) hypertension (principal); R17 Unspecified jaundice; D75.89 Other specified diseases of blood and blood-forming organs; M35.3 Polymyalgia rheumatica
CPT/HCPCS: 36415; 80053; 82248; 83615; 84443; 85025; 85610; 85651; 85730; 86140; 86430; 86850

== ENCOUNTER → 2022-05-28 11:28 | Outpatient (CLI) | payer MEDICARE, SELFPAY ==
[2022-05-28 13:29] LABS: Add Manual Diff / Slide Review NO; Basophils Absolute Auto 0 /uL (0-100); Basophils Percent Auto 0.4 % (0-2); Eosinophils Absolute Auto 100 /uL (0-450); Eosinophils Percent Auto 1.2 % (2-4); Hematocrit 37.2 % (36-46); Hemoglobin 12.1 g/dL (12.0-16.0); Lymphocytes Absolute Auto 2000 /uL (1100-4500); Mean Corpuscular HGB Conc 32.6 % (30-36); Mean Corpuscular Hemoglobin 31.3 PG (26-34); Monocytes Absolute Auto 700 /uL (0-900); Monocytes Percent Auto 8.3 % (3-14); Neutrophils Absolute Auto 5700 /uL (1500-7000); Neutrophils Percent Auto 67.1 % (50-75); Platelet Count 386 X10^3/uL (150-400); Red Blood Cell Count 3.87 X10^6/uL (4.0-5.2); Red Cell Distribution Width 14.7 % (11.6-14.8); White Blood Cell Count 8.5 X10^3/uL (4.5-11.0)
[2022-05-28 13:44] LABS: Alanine Aminotransferase 17 IU/L (<35); Albumin 4.1 g/dL (3.5-5.0); Albumin Globulin Ratio 1.2 (1.0-2.8); Alkaline Phosphatase 104 U/L (38-126); Aspartate Aminotransferase 25 IU/L (14-36); BUN Creatinine Ratio 23.1 (6-22); Bilirubin Total 0.8 mg/dL (0.2-1.3); Blood Urea Nitrogen 15 mg/dL (7-17); Calcium 9.1 mg/dL (8.4-10.2); Carbon Dioxide 27 mmol/L (22-32); Chloride 98 mmol/L (98-107); Cholesterol 200 mg/dL (140-199); Estimated Glomerular Filt Rate > 60 mL/min (>60); Globulin 3.5 g/dL (1.7-4.1); Glucose 104 mg/dL (80-110); HDL Cholesterol 65 mg/dL (40-60); HEMOLYSIS < 15 (0-50); LDL Cholesterol Calculated 115 mg/dL (<100); Sodium 135 mmol/L (137-145); Total Protein 7.6 g/dL (6.3-8.2); Triglycerides 99 mg/dL (35-150)
== END ==
PROVIDERS: PCP Family Medicine; Referring Provider Family Medicine; Visit Provider Family Medicine
DX: E78.5 Hyperlipidemia, unspecified (principal); I10 Essential (primary) hypertension; I48.19 Other persistent atrial fibrillation
CPT/HCPCS: 36415; 80053; 80061; 85025

== ENCOUNTER → 2022-06-10 12:28 | Outpatient (CLI) | payer MEDICARE, SELFPAY | PROVIDERS: PCP Family Medicine; Visit Provider Registered Nurse | DX: R30.0 Dysuria (principal) | CPT/HCPCS: 87077; 87086; 87186 ==

== ENCOUNTER → 2022-06-24 09:55 | Outpatient (CLI) | payer MEDICARE, SELFPAY ==
[2022-06-24 11:06] LABS: Add Manual Diff / Slide Review NO; Basophils Absolute Auto 0 /uL (0-100); Basophils Percent Auto 0.2 % (0-2); Eosinophils Absolute Auto 0 /uL (0-450); Eosinophils Percent Auto 0.3 % (2-4); Hematocrit 37.4 % (36-46); Hemoglobin 12.6 g/dL (12.0-16.0); Lymphocytes Absolute Auto 1200 /uL (1100-4500); Lymphocytes Percent Auto 9.1 % (25-40); Mean Corpuscular HGB Conc 33.6 % (30-36); Mean Corpuscular Hemoglobin 32.2 PG (26-34); Mean Corpuscular Volume 95.7 fL (80-100); Monocytes Absolute Auto 500 /uL (0-900); Neutrophils Absolute Auto 10900 /uL (1500-7000); Neutrophils Percent Auto 86.4 % (50-75); Platelet Count 344 X10^3/uL (150-400); Red Blood Cell Count 3.91 X10^6/uL (4.0-5.2); Red Cell Distribution Width 16.3 % (11.6-14.8); White Blood Cell Count 12.6 X10^3/uL (4.5-11.0)
[2022-06-24 11:26] LABS: Erythrocyte Sedimentation Rate 22 MM/HR (0-20)
[2022-06-24 11:28] LABS: Alanine Aminotransferase 19 IU/L (<35); Albumin 4.1 g/dL (3.5-5.0); Albumin Globulin Ratio 1.4 (1.0-2.8); Alkaline Phosphatase 86 U/L (38-126); Aspartate Aminotransferase 27 IU/L (14-36); BUN Creatinine Ratio 22.2 (6-22); Bilirubin Total 0.7 mg/dL (0.2-1.3); Blood Urea Nitrogen 16 mg/dL (7-17); C-Reactive Protein Quant 1.9 mg/dL (<1.0); Calcium 9.5 mg/dL (8.4-10.2); Carbon Dioxide 28 mmol/L (22-32); Chloride 99 mmol/L (98-107); Estimated Glomerular Filt Rate > 60 mL/min (>60); Glucose 108 mg/dL (80-110); HEMOLYSIS < 15 (0-50); Potassium 4.3 mmol/L (3.4-5.1); Sodium 136 mmol/L (137-145); Total Protein 7.1 g/dL (6.3-8.2)
== END ==
PROVIDERS: PCP Family Medicine; Referring Provider Internal Medicine Rheumatology; Visit Provider Internal Medicine Rheumatology
DX: I10 Essential (primary) hypertension (principal); M31.6 Other giant cell arteritis; Z79.01 Long term (current) use of anticoagulants
CPT/HCPCS: 36415; 80053; 85025; 85651; 86140

== ENCOUNTER → 2022-06-28 15:01 | Outpatient (CLI) | payer MEDICARE, SELFPAY ==
--- NOTE | 2022-06-28 | DI.ECHO.S_ITS ---
[facility]---------+ [facility] +---------+ : : [address] : : : : [id number] : : : : Phone: [phone]+ Echocardiogram Report + + :Name: TANYA DICKENS Study Date: 06/28/2022 Height: 63 in : :[facility] ReadingLocation: Weight: 105 lb : : Gender: Female BSA: 1.5 m2 : :: 1940 Age: 82 yrs BP: 132/84 mmHg: :Reason For Study: Atrial fibrillatio, Polymyalgia rheumatica : :Ordering Physician: Diandra : :Carson Kunz Performed By: Renetta Allen : :Referring: DIANDRA KUNZ : + + Interpretation Summary 1) Normal left ventricular thickness, size, wall motion, and systolic function (EF 55-60%). 2) Mildly enlarged right ventricle with low normal function. 3) No significant valvular abnormalities. 4) Compared to the Echo done 03/02/2020, LVEF has improved from 50-55% to 55- 60% on this study. Procedure: A two-dimensional transthoracic echocardiogram with color flow and Doppler was performed. The study quality was technically good. The patient was in atrial fibrillation with heart rates between 66-107 bpm during the exam. Left Ventricle: The left ventricle is normal in size and wall thickness. The ejection fraction is estimated to be 55-60%. Left ventricular systolic function appears normal without focal wall motion abnormalities. Diastolic function could not be accurately assessed due to atrial fibrillation. Right Ventricle: The right ventricle is mildly dilated. Right ventricular systolic function is at the lower limits of normal. Atria: The left atrium is moderately dilated. The right atrium is moderately dilated. There is no Doppler evidence for an interatrial shunt. Mitral Valve: The mitral valve leaflets appear mildly thickened, but open well. There is mild mitral regurgitation. This is unchanged compared to the previous study. Aortic Valve: The aortic valve is trileaflet. The aortic valve is mildly calcified. There is no aortic valve stenosis. No aortic regurgitation is present. Tricuspid Valve: The tricuspid valve is normal in structure and function. There is mild tricuspid regurgitation. The right ventricular systolic pressure is estimated to be at least 20 mmHg based on an estimated right atrial pressure of 3 mm Hg. Pulmonic Valve: The pulmonic valve leaflets are thin and pliable; valve motion is normal. There is a trace or physiologic amount of pulmonic regurgitation. Great Vessels: The aortic root is not well visualized but is probably normal size. The ascending aorta is normal in size. Pericardium/ Pleura There is no pericardial effusion. There is no pleural effusion. MMode/2D Measurements & Calculations LVIDd: 3.4 cm LVOT diam: 1.7 cm LVIDs: 2.0 cm Ao root diam: 2.8 cm FS: 41.2 % asc Aorta Diam: 2.7 cm EPSS: 0.20 cm IVSd: 0.90 cm LVPWd: 0.90 cm LV glover. diameter/BSA (cm/m^2): 2.3 LV sys. diameter/BSA (cm/m^2): 1.4 LA dimension: 3.6 cm RA long axis: 5.3 cm LA A2 area: 19.9 cm2 RA area: 18.8 cm2 LA A4 area: 22.6 cm2 RA vol: 56.6 ml LA length (vol): 5.6 cm RA : 38.5 ml/m2 LA vol: 68.8 ml IVC diam: 1.4 cm LA vol index: 46.8 ml/m2 RVD1 (basal): 3.9 cm LVLs ap4: 3.9 cm LVLd ap2: 5.5 cm TAPSE_phl: 2.0 cm LVLs ap2: 5.0 cm Doppler Measurements & Calculations Ao V2 max: 107.3 cm/sec LVOT Max Alcides: 70.1 cm/sec Ao V2 mean: 80.2 cm/sec LV V1 max P.0 mmHg Ao max P.0 mmHg LV V1 VTI: 14.2 cm Ao mean P.0 mmHg OPAL(I,D): 1.6 cm2 Ao V2 VTI: 21.1 cm OPAL(V,D): 1.5 cm2 sev ratio: 0.67 OPAL indexed to BSA (cm^2/m^2): 1.1 MV E max alcides: 85.8 cm/sec TR max alcides: 219.5 cm/sec Med Peak E' Alcides: 7.8 cm/sec TR max P.4 mmHg E/E' med: 11.0 PA V2 max: 77.6 cm/sec Lat Peak E' Alcides: 10.7 cm/sec PA V2 mean: 54.3 cm/sec E/E' lat: 8.0 PA mean P.0 mmHg E/e' average: 9.5 MV dec time: 0.40 sec MVA(VTI): 1.2 cm2 MV V2 mean: 54.0 cm/sec SV(LVOT): 33.1 ml MV mean P.3 mmHg MV V2 VTI: 27.4 cm AV VR_phl: 0.66 MV P1/2t-pr_phl: 116.0 msec OPAL(VTI)/BSA_phl: 1.0 Reading Physician:03:32 PM
== END ==
PROVIDERS: PCP Family Medicine; Referring Provider Internal Medicine Cardiovascular Disease; Visit Provider Internal Medicine Cardiovascular Disease
DX: I48.19 Other persistent atrial fibrillation (principal); M35.3 Polymyalgia rheumatica; I08.1 Rheumatic disorders of both mitral and tricuspid valves
CPT/HCPCS: 93306

== ENCOUNTER → 2022-09-07 12:38 | Outpatient (CLI) | payer MEDICARE, SELFPAY | PROVIDERS: PCP Family Medicine; Visit Provider Nurse Practitioner Family | DX: J02.9 Acute pharyngitis, unspecified (principal) | CPT/HCPCS: 87070 ==

== ENCOUNTER → 2022-11-19 11:36 | Outpatient (CLI) | payer MEDICARE, SELFPAY ==
[2022-11-19 12:10] LABS: Add Manual Diff / Slide Review NO; Basophils Absolute Auto 0 /uL (0-100); Basophils Percent Auto 0.5 % (0-2); Eosinophils Absolute Auto 400 /uL (0-450); Eosinophils Percent Auto 6.3 % (2-4); Hematocrit 33.5 % (36-46); Hemoglobin 11.4 g/dL (12.0-16.0); Lymphocytes Absolute Auto 1000 /uL (1100-4500); Mean Corpuscular HGB Conc 34.1 % (30-36); Mean Corpuscular Hemoglobin 34.5 PG (26-34); Mean Corpuscular Volume 101.1 fL (80-100); Monocytes Absolute Auto 400 /uL (0-900); Monocytes Percent Auto 7.7 % (3-14); Neutrophils Absolute Auto 3800 /uL (1500-7000); Neutrophils Percent Auto 67.5 % (50-75); Platelet Count 415 X10^3/uL (150-400); Red Blood Cell Count 3.32 X10^6/uL (4.0-5.2); Red Cell Distribution Width 13.9 % (11.6-14.8); White Blood Cell Count 5.6 X10^3/uL (4.5-11.0)
[2022-11-19 12:30] LABS: Erythrocyte Sedimentation Rate 51 MM/HR (0-20)
[2022-11-19 12:41] LABS: Alanine Aminotransferase 22 IU/L (<35); Albumin 3.9 g/dL (3.5-5.0); Albumin Globulin Ratio 1.3 (1.0-2.8); Alkaline Phosphatase 110 U/L (38-126); Aspartate Aminotransferase 38 IU/L (14-36); BUN Creatinine Ratio 12.9 (6-22); Bilirubin Total 0.6 mg/dL (0.2-1.3); Blood Urea Nitrogen 8 mg/dL (7-17); C-Reactive Protein Quant 4.6 mg/dL (<1.0); Carbon Dioxide 26 mmol/L (22-32); Chloride 100 mmol/L (98-107); Estimated Glomerular Filt Rate > 60 mL/min (>60); Glucose 110 mg/dL (80-110); HEMOLYSIS < 15 (0-50); Potassium 4.2 mmol/L (3.4-5.1); Sodium 134 mmol/L (137-145); Total Protein 6.9 g/dL (6.3-8.2)
== END ==
PROVIDERS: PCP Family Medicine; Referring Provider Specialist/Technologist Athletic Trainer; Visit Provider Specialist/Technologist Athletic Trainer
DX: M31.6 Other giant cell arteritis (principal)
CPT/HCPCS: 36415; 80053; 85025; 85651; 86140

== ENCOUNTER → 2023-01-03 09:51 | Outpatient (CLI) | payer MEDICARE, SELFPAY ==
[2023-01-03 10:31] LABS: Add Manual Diff / Slide Review NO; Basophils Absolute Auto 0 /uL (0-100); Basophils Percent Auto 0.5 % (0-2); Eosinophils Absolute Auto 200 /uL (0-450); Eosinophils Percent Auto 3.3 % (2-4); Hematocrit 38.1 % (36-46); Hemoglobin 12.9 g/dL (12.0-16.0); Lymphocytes Absolute Auto 1000 /uL (1100-4500); Lymphocytes Percent Auto 13.7 % (25-40); Mean Corpuscular HGB Conc 33.9 % (30-36); Mean Corpuscular Hemoglobin 33.7 PG (26-34); Mean Corpuscular Volume 99.3 fL (80-100); Monocytes Absolute Auto 700 /uL (0-900); Monocytes Percent Auto 9.9 % (3-14); Neutrophils Absolute Auto 5400 /uL (1500-7000); Neutrophils Percent Auto 72.6 % (50-75); Platelet Count 424 X10^3/uL (150-400); Red Blood Cell Count 3.84 X10^6/uL (4.0-5.2); Red Cell Distribution Width 15.6 % (11.6-14.8); White Blood Cell Count 7.4 X10^3/uL (4.5-11.0)
[2023-01-03 10:56] LABS: Alanine Aminotransferase 51 IU/L (<35); Albumin 4.1 g/dL (3.5-5.0); Albumin Globulin Ratio 1.3 (1.0-2.8); Alkaline Phosphatase 102 U/L (38-126); Aspartate Aminotransferase 44 IU/L (14-36); BUN Creatinine Ratio 20.3 (6-22); Bilirubin Total 0.6 mg/dL (0.2-1.3); Blood Urea Nitrogen 13 mg/dL (7-17); C-Reactive Protein Quant 4.8 mg/dL (<1.0); Calcium 9.2 mg/dL (8.4-10.2); Carbon Dioxide 27 mmol/L (22-32); Chloride 98 mmol/L (98-107); Estimated Glomerular Filt Rate > 60 mL/min (>60); Globulin 3.1 g/dL (1.7-4.1); Glucose 115 mg/dL (80-110); HEMOLYSIS < 15 (0-50); Sodium 134 mmol/L (137-145); Total Protein 7.2 g/dL (6.3-8.2)
[2023-01-03 11:04] LABS: Erythrocyte Sedimentation Rate 30 MM/HR (0-20)
== END ==
PROVIDERS: PCP Family Medicine; Referring Provider Specialist/Technologist Athletic Trainer; Visit Provider Specialist/Technologist Athletic Trainer
DX: M35.3 Polymyalgia rheumatica (principal); M31.6 Other giant cell arteritis
CPT/HCPCS: 36415; 80053; 85025; 85651; 86140

== ENCOUNTER → 2023-01-23 08:27 | Outpatient (CLI) | payer MEDICARE, SELFPAY ==
[2023-01-23 09:20] LABS: Add Manual Diff / Slide Review NO; Basophils Absolute Auto 0 /uL (0-100); Basophils Percent Auto 0.3 % (0-2); Eosinophils Absolute Auto 200 /uL (0-450); Eosinophils Percent Auto 2.4 % (2-4); Hematocrit 36.6 % (36-46); Hemoglobin 12.4 g/dL (12.0-16.0); Lymphocytes Absolute Auto 1500 /uL (1100-4500); Lymphocytes Percent Auto 15.1 % (25-40); Mean Corpuscular HGB Conc 33.7 % (30-36); Mean Corpuscular Hemoglobin 33.7 PG (26-34); Monocytes Absolute Auto 500 /uL (0-900); Monocytes Percent Auto 5.3 % (3-14); Neutrophils Absolute Auto 7800 /uL (1500-7000); Neutrophils Percent Auto 76.9 % (50-75); Platelet Count 417 X10^3/uL (150-400); Red Blood Cell Count 3.66 X10^6/uL (4.0-5.2); Red Cell Distribution Width 17.6 % (11.6-14.8); White Blood Cell Count 10.1 X10^3/uL (4.5-11.0)
[2023-01-23 09:57] LABS: Erythrocyte Sedimentation Rate 25 MM/HR (0-20)
[2023-01-23 09:59] LABS: Alanine Aminotransferase 29 IU/L (<35); Albumin 3.8 g/dL (3.5-5.0); Albumin Globulin Ratio 1.5 (1.0-2.8); Alkaline Phosphatase 72 U/L (38-126); Aspartate Aminotransferase 29 IU/L (14-36); BUN Creatinine Ratio 21.7 (6-22); Bilirubin Total 0.6 mg/dL (0.2-1.3); Blood Urea Nitrogen 15 mg/dL (7-17); Calcium 9.2 mg/dL (8.4-10.2); Carbon Dioxide 28 mmol/L (22-32); Chloride 100 mmol/L (98-107); Estimated Glomerular Filt Rate > 60 mL/min (>60); Globulin 2.6 g/dL (1.7-4.1); Glucose 82 mg/dL (80-110); HEMOLYSIS < 15 (0-50); Potassium 3.8 mmol/L (3.4-5.1); Sodium 135 mmol/L (137-145); Total Protein 6.4 g/dL (6.3-8.2)
== END ==
PROVIDERS: PCP Family Medicine; Referring Provider Specialist/Technologist Athletic Trainer; Visit Provider Specialist/Technologist Athletic Trainer
DX: M35.03 Sjogren syndrome with myopathy (principal); M31.6 Other giant cell arteritis
CPT/HCPCS: 36415; 80053; 85025; 85651; 86140

== ENCOUNTER → 2023-02-05 12:17 | Outpatient (CLI) | payer MEDICARE, SELFPAY | PROVIDERS: PCP Family Medicine; Visit Provider Student in an Organized Health Care Education/Training Program | DX: K61.0 Anal abscess (principal) | CPT/HCPCS: 87070; 87075; 87205 ==

== ENCOUNTER → 2023-02-05 12:32 | Outpatient (CLI) | payer MEDICARE, SELFPAY ==
[2023-02-05 12:59] LABS: Add Manual Diff / Slide Review NO; Basophils Absolute Auto 0 /uL (0-100); Basophils Percent Auto 0.3 % (0-2); Eosinophils Absolute Auto 100 /uL (0-450); Eosinophils Percent Auto 0.6 % (2-4); Hematocrit 39.2 % (36-46); Lymphocytes Absolute Auto 600 /uL (1100-4500); Lymphocytes Percent Auto 3.8 % (25-40); Mean Corpuscular HGB Conc 33.1 % (30-36); Mean Corpuscular Hemoglobin 32.9 PG (26-34); Mean Corpuscular Volume 99.7 fL (80-100); Monocytes Absolute Auto 300 /uL (0-900); Monocytes Percent Auto 2.1 % (3-14); Neutrophils Absolute Auto 13500 /uL (1500-7000); Neutrophils Percent Auto 93.2 % (50-75); Platelet Count 426 X10^3/uL (150-400); Red Blood Cell Count 3.94 X10^6/uL (4.0-5.2); Red Cell Distribution Width 17.8 % (11.6-14.8); White Blood Cell Count 14.5 X10^3/uL (4.5-11.0)
[2023-02-05 13:12] LABS: Lactate (Lactic Acid) 1.6 mmol/L (0.7-2.1)
== END ==
PROVIDERS: PCP Family Medicine; Referring Provider Student in an Organized Health Care Education/Training Program; Visit Provider Student in an Organized Health Care Education/Training Program
DX: K61.1 Rectal abscess (principal); K61.0 Anal abscess; R50.9 Fever, unspecified
CPT/HCPCS: 36415; 83605; 85025; 87070; 87075; 87205

== ENCOUNTER → 2023-03-03 12:51 | Outpatient (CLI) | payer MEDICARE, SELFPAY ==
--- NOTE | 2023-03-03 12:52 | DI.RAD.S_ITS ---
Bone Density Report Name: TANYA DICKENS Age: 82 Sex: Female Ethnicity: White Date of : 1940 Indication: osteopenia; Referring Provider: ZOHAIB LAROSE Study: Bone densitometry was performed. Exam Date: March 03, 2023 Accession number: [id number] Bone Density: Region BMD T-score Z-score Classification AP Spine(L1, L2, L3) 0.806 -1.9 0.7 Osteopenia Femoral Neck (Left) 0.525 -2.9 -0.6 Osteoporosis Total Hip (Left) 0.661 -2.3 -0.2 Osteopenia Femoral Neck (Right) 0.572 -2.5 -0.2 Osteoporosis Total Hip (Right) 0.636 -2.5 -0.4 Osteoporosis Total Hip Mean 0.649 -2.4 -0.3 Osteopenia World Health Organization criteria for BMD impression classify patients as: Normal (T-score at or above -1.0), Osteopenia (T-score between -1.0 and -2.5), or Osteoporosis (T-score at or below -2.5). 10-year Fracture Risk: FRAX not reported because: Some T-score for Spine Total or Hip Total or Femoral Neck at or below -2.5 Previous Exams: -- Region Exam Age BMD T-score BMD Change BMD Change Date g/cm2 vs Baseline vs Previous -- AP Spine (L1-L3) 03/03/2023 82 0.806 -1.9 -0.092 (-10.2%)# -0.092 (-10.2%)# 11/22/2020 80 0.898 -1.1 Total Hip(Left) 03/03/2023 82 0.661 -2.3 -0.052 (-7.3%)# -0.052 (-7.3%)# 11/22/2020 80 0.713 -1.9 Total Hip(Right) 03/03/2023 82 0.636 -2.5 -0.050 (-7.3%)# -0.050 (-7.3%)# 11/22/2020 80 0.686 -2.1 -- *Denotes significance at 95% confidence level, LSC for AP Spine = 0.022 g/cm2, LSC for Total Hip = 0.027 g/cm2 # Denotes dissimilar scan types or analysis methods Impression: The patient has osteoporosis, based on the Left Femoral Neck T-score. No significant bone loss was observed. Discussion: INCREASED RISK OF FRACTURE. BONE DENSITY IS UNDESIRABLY LOW AT ONE OR MORE SKELETAL SITES, CONSISTENT WITH POSTMENOPAUSAL OSTEOPOROSIS. This patient's lowest T-score meets the World Health Organization's (WHO) criteria for osteoporosis at one or more sites (T-score -2.5 or below). In untreated patients, the risk of osteoporotic fracture increases approximately two-fold for each 1.0 SD decrease in T-score. Low bone density is not the only risk factor for fracture; also consider factors such as patient's age, frailty or poor health, risk of falling, risk of injury, previous osteoporotic fracture, family history of osteoporosis, cigarette smoking, low body weight, etc. Not everyone with low bone mineral density has osteoporosis; osteomalacia and other metabolic bone disorders should also be considered. Patients who have osteoporosis should be evaluated for specific diseases and conditions (secondary causes) that may cause or contribute to bone loss. The [place] [employer] Endocrinologists (AACE) and National Osteoporosis Foundation (NOF) recommend pharmacologic intervention for all postmenopausal women whose T-score is in this range. The patient should follow a healthful lifestyle (good nutrition with adequate calcium and vitamin D, and appropriate weight-bearing exercise). Follow-Up: Consider a repeat BMD and Vertebral Fracture Assessment (VFA) exam in 2 years or sooner if medically necessary, to reassess this patient's status. Reported by: MARLEY MUNOZ M.D. on 03/03/2023 1:31:00 PM.
== END ==
PROVIDERS: PCP Family Medicine; Referring Provider Family Medicine; Visit Provider Family Medicine
DX: M85.89 Other specified disorders of bone density and structure, multiple sites (principal); M81.0 Age-related osteoporosis without current pathological fracture
CPT/HCPCS: 77080

== ENCOUNTER → 2023-03-10 16:13 | Outpatient (CLI) | payer MEDICARE, SELFPAY ==
--- NOTE | 2023-03-10 | DI.MRI.S_ITS ---
PROCEDURE: MR ANGIO HEAD WO CON INDICATIONS: Other giant cell arteritis TECHNIQUE: Noncontrast axial 3-D [id number] MR angiogram, with 3-dimensional maximum intensity projection (MIP) reformats of the internal carotid arteries and posterior circulation then performed. COMPARISON: [facility], MR, MR ANGIO CHEST, 07/05/2022, 12:26. [facility], MR, MR ANGIO NECK WITH/WITHOUT CONTRAST, 07/02/2022, 13:51. [facility], MR, MR ANGIO NECK W CON, 03/10/2023, 16:37. FINDINGS: Image quality: Excellent. Anterior circulation: Intracranial internal carotid arteries demonstrate normal size and intraluminal flow signal. The flow within the paired anterior cerebral arteries is normal and symmetric. The flow within the middle cerebral arteries is normal and symmetric. The anterior communicating artery is seen. No stenoses, occlusions, or aneurysms. Posterior circulation: Visualized portions of the vertebral arteries demonstrate normal caliber, and join to form a normal appearing basilar artery. The flow within the posterior cerebral arteries is normal and symmetric. No stenoses, occlusions, or aneurysms. IMPRESSION: Unremarkable exam. No visualized appearance of giant cell arteritis. Dictated by: Rosalba Whalen M.D. on 03/11/2023 at 13:50 Approved by: Rosalba Whalen M.D. on 03/11/2023 at 14:26
--- NOTE | 2023-03-10 | DI.MRI.S_ITS ---
PROCEDURE: MR ANGIO NECK W CON INDICATIONS: Other giant cell arteritis TECHNIQUE: Axial and sagittal TruFISP through the neck. Coronal dynamic MRA after the administration of contrast in the arterial and venous phases, with rotating 3-dimensional maximum intensity projection (MIP) reformats constructed from subtraction images. COMPARISON: [facility], MR, MR ANGIO HEAD WO CON, 03/10/2023, 16:37. [facility], MR, MR ANGIO CHEST, 07/05/2022, 12:26. [facility], MR, MR ANGIO NECK WITH/WITHOUT CONTRAST, 07/02/2022, 13:51. FINDINGS: Image quality: Excellent. Carotid system: Great vessels demonstrate a conventional anatomy as they arise from the aortic arch. The origins of the common carotid arteries appear normal. The calibers and courses of the common carotid arteries are likewise normal. The carotid bifurcations appear normal bilaterally. The internal carotid arteries are widely patent up to the [place]. Posterior circulation: The origins of the vertebral arteries are unremarkable. The more superior portions of the vertebral arteries demonstrate normal course and caliber. Vertebral arteries join to form a normal appearing basilar artery. Miscellaneous: Subclavian arteries are patent throughout. Pre-contrast images through the neck demonstrate no soft tissue abnormalities. IMPRESSION: No visualized appearance of vasculitis. Any quantitative measurements of stenosis were performed using NASCET criteria. Dictated by: Rosalba Whalen M.D. on 03/11/2023 at 14:44 Approved by: Rosalba Whalen M.D. on 03/11/2023 at 14:45
== END ==
PROVIDERS: PCP Family Medicine; Referring Provider Specialist/Technologist Athletic Trainer; Visit Provider Specialist/Technologist Athletic Trainer
DX: M31.6 Other giant cell arteritis (principal)
CPT/HCPCS: 70544; 70549; A9579

== ENCOUNTER → 2023-04-08 15:10 | Outpatient (CLI) | payer MEDICARE, SELFPAY ==
--- NOTE | 2023-04-08 | DI.MRI.S_ITS ---
PROCEDURE: 1. MR angiography of the chest. 2. MR angiography of the abdomen. 3. MR angiography of the pelvis. INDICATIONS: OTHER GIANT CELL ARTERITIS TECHNIQUE: Precontrast axial and coronal TruFISP acquired through the abdomen and pelvis. Multi-station dynamic coronal MRA using Care Bolus timing from the kidneys to the ankles during the administration of contrast, with 3-dimensional maximum intensity projection (MIP) reformats constructed. COMPARISON: None. FINDINGS: Image quality: Degraded by metallic artifact. MR angiography of the chest: The ascending thoracic aorta is normal in caliber. There is a common origin of the innominate and left common carotid arteries, which is patent. Left subclavian artery is patent. There is mild dilatation of the proximal descending thoracic aorta, measuring 28 mm diameter. Descending thoracic aorta is otherwise within normal limits. Cardiomegaly is present. Visualized portions of the lungs and chest wall are grossly unremarkable. MR angiography of the abdomen: The abdominal aorta is normal in caliber without dissection, or aneurysm. The celiac and superior mesenteric arteries are patent. Inferior mesenteric artery is not well seen. Single bilateral renal arteries are present which are patent. Visualized bowel loops and organs are grossly unremarkable. MR angiography of the pelvis: The bilateral common, internal, and external iliac arteries are patent. Visualized vasculature and bowel loops are within normal limits. Visualized osseous structures are grossly unremarkable. IMPRESSION: 1. Mild dilatation of the proximal descending thoracic aorta. 2. Otherwise negative MR angiography of the chest, abdomen, and pelvis. Dictated by: Donnell Sanon M.D. on 04/08/2023 at 16:31 Approved by: Donnell Sanon M.D. on 04/08/2023 at 16:35
--- NOTE | 2023-04-08 | DI.MG.S_ITS ---
BILATERAL DIGITAL SCREENING MAMMOGRAM 3D/2D WITH CAD: 04/08/2023 CLINICAL: Routine screening. Family history of breast cancer. Comparison is made to exams dated: 03/18/2022 mammogram, 03/06/2021 mammogram, 02/26/2020 mammogram, and 11/16/2018 mammogram - [facility]. Both breasts are heterogeneously dense, which may obscure small masses (category c / 51-75% glandular tissue). Current study was also evaluated with a Computer Aided Detection (CAD) system. No significant masses, calcifications, or other findings are seen in either breast. There has been no significant interval change. IMPRESSION: NEGATIVE There is no mammographic evidence of malignancy. A 1 year screening mammogram is recommended. Based on the Tyrer Cuzick model (a risk assessment model) the patient's lifetime risk is 2.2% and her 10 year risk is 0.0%. According to the ACR, ACS, and NCCN guidelines, an annual breast MRI exam along with mammogram is recommended if the patient's lifetime risk is 20% or greater. This exam was interpreted at Station ID: [id number]. NOTE: For mammograms, a report in lay terms will be sent to the patient. Approximately 15% of breast malignancies will not be visualized mammographically. In the management of a palpable breast mass, a negative mammogram must not discourage biopsy of a clinically suspicious lesion. Electronically Signed By: Jorge Alberto hester/mik:04/09/2023 09:36:20 letter sent: Normal Exam ACR BI-RADS Category 1: Negative [id number]
== END ==
PROVIDERS: PCP Family Medicine; Referring Provider Specialist/Technologist Athletic Trainer; Visit Provider Specialist/Technologist Athletic Trainer
DX: Z12.31 Encounter for screening mammogram for malignant neoplasm of breast (principal); M31.6 Other giant cell arteritis; I77.810 Thoracic aortic ectasia; Z80.3 Family history of malignant neoplasm of breast
CPT/HCPCS: 77063; 77067; C8902; C8911; C8918; A9579

== ENCOUNTER → 2023-04-14 13:32 | Outpatient (CLI) | payer OTHER, SELFPAY ==
[2023-04-14 14:20] LABS: Add Manual Diff / Slide Review NO; Basophils Absolute Auto 0 /uL (0-100); Basophils Percent Auto 0.1 % (0-2); Eosinophils Absolute Auto 0 /uL (0-450); Eosinophils Percent Auto 0.1 % (2-4); Hematocrit 37.7 % (36-46); Hemoglobin 12.7 g/dL (12.0-16.0); Lymphocytes Absolute Auto 900 /uL (1100-4500); Lymphocytes Percent Auto 6.3 % (25-40); Mean Corpuscular HGB Conc 33.7 % (30-36); Mean Corpuscular Hemoglobin 35.7 PG (26-34); Mean Corpuscular Volume 105.9 fL (80-100); Monocytes Absolute Auto 500 /uL (0-900); Monocytes Percent Auto 3.7 % (3-14); Neutrophils Absolute Auto 12200 /uL (1500-7000); Neutrophils Percent Auto 89.8 % (50-75); Platelet Count 341 X10^3/uL (150-400); Red Blood Cell Count 3.56 X10^6/uL (4.0-5.2); Red Cell Distribution Width 17.2 % (11.6-14.8); White Blood Cell Count 13.6 X10^3/uL (4.5-11.0)
[2023-04-14 14:43] LABS: Erythrocyte Sedimentation Rate 9 MM/HR (0-20)
[2023-04-14 14:47] LABS: Alanine Aminotransferase 65 IU/L (<35); Albumin Globulin Ratio 1.5 (1.0-2.8); Alkaline Phosphatase 65 U/L (38-126); Aspartate Aminotransferase 42 IU/L (14-36); BUN Creatinine Ratio 21.3 (6-22); Bilirubin Total 0.6 mg/dL (0.2-1.3); Blood Urea Nitrogen 17 mg/dL (7-17); Calcium 9.7 mg/dL (8.4-10.2); Carbon Dioxide 30 mmol/L (22-32); Chloride 97 mmol/L (98-107); Estimated Glomerular Filt Rate > 60 mL/min (>60); Globulin 2.6 g/dL (1.7-4.1); Glucose 153 mg/dL (80-110); HEMOLYSIS < 15 (0-50); Potassium 4.3 mmol/L (3.4-5.1); Sodium 133 mmol/L (137-145); Total Protein 6.6 g/dL (6.3-8.2)
[2023-04-14 15:55] LABS: C-Reactive Protein Quant 0.8 mg/dL (<1.0)
== END ==
PROVIDERS: PCP Family Medicine; Referring Provider Specialist/Technologist Athletic Trainer; Visit Provider Specialist/Technologist Athletic Trainer
DX: M35.3 Polymyalgia rheumatica (principal); M31.6 Other giant cell arteritis
CPT/HCPCS: 36415; 80053; 85025; 85651; 86140

== ENCOUNTER → 2023-05-12 18:05 | Outpatient (CLI) | payer MEDICARE, SELFPAY | PROVIDERS: PCP Family Medicine; Visit Provider Nurse Practitioner Family | DX: R10.9 Unspecified abdominal pain (principal) | CPT/HCPCS: 87086; 87210 ==

== ENCOUNTER → 2023-05-28 11:40 | Outpatient (CLI) | payer OTHER, SELFPAY ==
[2023-05-28 12:18] LABS: Add Manual Diff / Slide Review NO; Basophils Absolute Auto 0 /uL (0-100); Basophils Percent Auto 0.5 % (0-2); Eosinophils Absolute Auto 100 /uL (0-450); Eosinophils Percent Auto 1.3 % (2-4); Hematocrit 35.5 % (36-46); Hemoglobin 12.1 g/dL (12.0-16.0); Lymphocytes Absolute Auto 1900 /uL (1100-4500); Lymphocytes Percent Auto 22.4 % (25-40); Mean Corpuscular HGB Conc 34.2 % (30-36); Mean Corpuscular Hemoglobin 36.5 PG (26-34); Mean Corpuscular Volume 106.8 fL (80-100); Monocytes Absolute Auto 500 /uL (0-900); Monocytes Percent Auto 6.3 % (3-14); Neutrophils Absolute Auto 5900 /uL (1500-7000); Neutrophils Percent Auto 69.5 % (50-75); Platelet Count 350 X10^3/uL (150-400); Red Blood Cell Count 3.32 X10^6/uL (4.0-5.2); Red Cell Distribution Width 15.8 % (11.6-14.8); White Blood Cell Count 8.5 X10^3/uL (4.5-11.0)
[2023-05-28 12:43] LABS: BUN Creatinine Ratio 22.9 (6-22); Blood Urea Nitrogen 16 mg/dL (7-17); Calcium 9.3 mg/dL (8.4-10.2); Carbon Dioxide 30 mmol/L (22-32); Chloride 99 mmol/L (98-107); Estimated Glomerular Filt Rate > 60 mL/min (>60); Glucose 100 mg/dL (80-110); HEMOLYSIS < 15 (0-50); Magnesium 1.8 mg/dL (1.6-2.3); Sodium 135 mmol/L (137-145)
[2023-05-28 12:52] LABS: Phosphorous 3.5 mg/dL (2.8-4.1)
[2023-05-28 22:33] LABS: Vitamin D 25 Hydroxy (D3) 47.2 ng/mL (30.0-100.0)
== END ==
PROVIDERS: PCP Family Medicine; Referring Provider Family Medicine; Visit Provider Family Medicine
DX: D75.89 Other specified diseases of blood and blood-forming organs (principal); M81.0 Age-related osteoporosis without current pathological fracture; D75.839 Thrombocytosis, unspecified
CPT/HCPCS: 36415; 80048; 82306; 83735; 84100; 85025

== ENCOUNTER → 2023-05-29 14:05 | Outpatient (CLI) | payer OTHER, SELFPAY ==
--- NOTE | 2023-05-29 14:07 | DI.RAD.S_ITS ---
PROCEDURE: XR KNEE LT 3V INDICATIONS: Left knee pain TECHNIQUE: 3 views of the knee were acquired. COMPARISON: None. FINDINGS: Bones: No fractures or dislocations. No suspicious bony lesions. Moderate tricompartmental knee joint degeneration, most pronounced in the lateral femorotibial compartment. Mild chondrocalcinosis. Soft tissues: Small joint effusion. No suspicious soft tissue calcifications. IMPRESSION: 1. Moderate degenerative joint disease. 2. Mild chondrocalcinosis. Common etiologies are hyperparathyroidism and CPPD. 3. Small knee joint effusion. Dictated by: Ml Connolly M.D. on 05/29/2023 at 16:41 Approved by: Ml Connolly M.D. on 05/29/2023 at 16:44
== END ==
PROVIDERS: PCP Family Medicine; Referring Provider Family Medicine; Visit Provider Family Medicine
DX: M17.12 Unilateral primary osteoarthritis, left knee (principal); M25.462 Effusion, left knee; M11.262 Other chondrocalcinosis, left knee; M25.562 Pain in left knee
CPT/HCPCS: 73562

== ENCOUNTER → 2023-07-07 09:59 | Outpatient (CLI) | payer OTHER, SELFPAY ==
[2023-07-07 11:00] LABS: Add Manual Diff / Slide Review NO; Basophils Absolute Auto 0 /uL (0-100); Basophils Percent Auto 0.3 % (0-2); Eosinophils Absolute Auto 200 /uL (0-450); Eosinophils Percent Auto 1.8 % (2-4); Hematocrit 38.7 % (36-46); Hemoglobin 13.2 g/dL (12.0-16.0); Lymphocytes Absolute Auto 1700 /uL (1100-4500); Lymphocytes Percent Auto 18.5 % (25-40); Mean Corpuscular HGB Conc 34.1 % (30-36); Mean Corpuscular Hemoglobin 36.3 PG (26-34); Mean Corpuscular Volume 106.3 fL (80-100); Monocytes Absolute Auto 1100 /uL (0-900); Monocytes Percent Auto 12.1 % (3-14); Neutrophils Absolute Auto 6100 /uL (1500-7000); Neutrophils Percent Auto 67.3 % (50-75); Platelet Count 412 X10^3/uL (150-400); Red Blood Cell Count 3.63 X10^6/uL (4.0-5.2); Red Cell Distribution Width 15.5 % (11.6-14.8)
[2023-07-07 11:24] LABS: Alanine Aminotransferase 30 IU/L (<35); Albumin 4.2 g/dL (3.5-5.0); Albumin Globulin Ratio 1.3 (1.0-2.8); Alkaline Phosphatase 71 U/L (38-126); Aspartate Aminotransferase 34 IU/L (14-36); BUN Creatinine Ratio 18.1 (6-22); Bilirubin Total 0.5 mg/dL (0.2-1.3); Blood Urea Nitrogen 13 mg/dL (7-17); Calcium 9.3 mg/dL (8.4-10.2); Carbon Dioxide 29 mmol/L (22-32); Chloride 100 mmol/L (98-107); Estimated Glomerular Filt Rate > 60 mL/min (>60); Globulin 3.3 g/dL (1.7-4.1); Glucose 94 mg/dL (80-110); HEMOLYSIS < 15 (0-50); Potassium 3.5 mmol/L (3.4-5.1); Sodium 140 mmol/L (137-145); Total Protein 7.5 g/dL (6.3-8.2)
[2023-07-07 11:57] LABS: Erythrocyte Sedimentation Rate 31 MM/HR (0-20)
[2023-07-07 15:28] LABS: Hepatitis B Surface Antigen NEGATIVE s/c (NEGATIVE)
[2023-07-07 15:46] LABS: Hep C Virus Ab w/Reflex Quant NEGATIVE s/c (NEGATIVE)
[2023-07-08 03:46] LABS: Hepatitis B Core AB w/Reflex Negative (Negative)
[2023-07-08 04:09] LABS: Hepatitis B Surf AB Quant 5.1 mIU/mL (Immunity>9.9)
[2023-07-10 13:15] LABS: QuantiFERON Mitogen Value >10.00 IU/mL (.); QuantiFERON Nil Value 0.04 IU/mL (.); QuantiFERON TB Gold Plus Negative (Negative); QuantiFERON TB1 Ag Value 0.04 IU/mL (.); QuantiFERON TB2 Ag Value 0.05 IU/mL (.)
== END ==
PROVIDERS: PCP Family Medicine; Referring Provider Specialist/Technologist Athletic Trainer; Visit Provider Specialist/Technologist Athletic Trainer
DX: M35.3 Polymyalgia rheumatica (principal); M31.6 Other giant cell arteritis
CPT/HCPCS: 36415; 80053; 85025; 85651; 86140; 86480; 86704; 86706; 86803; 87340

== ENCOUNTER → 2023-10-06 08:41 | Outpatient (CLI) | payer MEDICARE, SELFPAY ==
[2023-10-06 09:09] LABS: Add Manual Diff / Slide Review NO; Basophils Absolute Auto 0 /uL (0-100); Basophils Percent Auto 0.5 % (0-2); Eosinophils Absolute Auto 100 /uL (0-450); Eosinophils Percent Auto 1.3 % (2-4); Hematocrit 39.7 % (36-46); Hemoglobin 13.5 g/dL (12.0-16.0); Lymphocytes Absolute Auto 2300 /uL (1100-4500); Lymphocytes Percent Auto 35.2 % (25-40); Mean Corpuscular HGB Conc 33.9 % (30-36); Mean Corpuscular Hemoglobin 34.5 PG (26-34); Mean Corpuscular Volume 101.7 fL (80-100); Monocytes Absolute Auto 800 /uL (0-900); Monocytes Percent Auto 11.7 % (3-14); Neutrophils Absolute Auto 3400 /uL (1500-7000); Neutrophils Percent Auto 51.3 % (50-75); Platelet Count 286 X10^3/uL (150-400); Red Blood Cell Count 3.91 X10^6/uL (4.0-5.2); Red Cell Distribution Width 13.4 % (11.6-14.8); White Blood Cell Count 6.6 X10^3/uL (4.5-11.0)
[2023-10-06 09:28] LABS: Alanine Aminotransferase 17 IU/L (<35); Albumin 4.2 g/dL (3.5-5.0); Albumin Globulin Ratio 1.5 (1.0-2.8); Alkaline Phosphatase 73 U/L (38-126); Aspartate Aminotransferase 29 IU/L (14-36); Bilirubin Total 0.6 mg/dL (0.2-1.3); Blood Urea Nitrogen 20 mg/dL (7-17); C-Reactive Protein Quant 0.7 mg/dL (<1.0); Calcium 9.1 mg/dL (8.4-10.2); Carbon Dioxide 27 mmol/L (22-32); Chloride 107 mmol/L (98-107); Estimated Glomerular Filt Rate > 60 mL/min (>60); Globulin 2.8 g/dL (1.7-4.1); Glucose 89 mg/dL (80-110); HEMOLYSIS < 15 (0-50); Sodium 139 mmol/L (137-145)
[2023-10-06 09:56] LABS: Erythrocyte Sedimentation Rate 14 MM/HR (0-20)
== END ==
PROVIDERS: PCP Family Medicine; Referring Provider Specialist/Technologist Athletic Trainer; Visit Provider Specialist/Technologist Athletic Trainer
DX: D84.9 Immunodeficiency, unspecified (principal); M35.3 Polymyalgia rheumatica; M31.6 Other giant cell arteritis
CPT/HCPCS: 36415; 80053; 85025; 85651; 86140

== ENCOUNTER → 2023-10-19 13:26 | Outpatient (CLI) | payer MEDICARE, SELFPAY | PROVIDERS: PCP Family Medicine; Visit Provider Physician Assistant Surgical | DX: R10.9 Unspecified abdominal pain (principal) | CPT/HCPCS: 87077; 87086; 87186 ==

== ENCOUNTER → 2024-03-17 16:58 | Outpatient (CLI) | payer MEDICARE, SELFPAY ==
[2024-03-17 18:26] LABS: Hematocrit 39.4 % (36-46); Hemoglobin 13.2 g/dL (12.0-16.0); Mean Corpuscular HGB Conc 33.6 % (30-36); Mean Corpuscular Hemoglobin 33.9 PG (26-34); Mean Corpuscular Volume 101.1 fL (80-100); Platelet Count 318 X10^3/uL (150-400); Red Cell Distribution Width 12.8 % (11.6-14.8); White Blood Cell Count 8.2 X10^3/uL (4.5-11.0)
[2024-03-17 18:51] LABS: Alanine Aminotransferase 13 IU/L (<35); Albumin 4.1 g/dL (3.5-5.0); Albumin Globulin Ratio 1.5 (1.0-2.8); Alkaline Phosphatase 106 U/L (38-126); Aspartate Aminotransferase 28 IU/L (14-36); BUN Creatinine Ratio 16.7 (6-22); Bilirubin Total 0.5 mg/dL (0.2-1.3); Blood Urea Nitrogen 12 mg/dL (7-17); C-Reactive Protein Quant 4.6 mg/dL (<1.0); Calcium 9.5 mg/dL (8.4-10.2); Carbon Dioxide 25 mmol/L (22-32); Chloride 102 mmol/L (98-107); Estimated Glomerular Filt Rate > 60 mL/min (>60); Globulin 2.7 g/dL (1.7-4.1); Glucose 91 mg/dL (80-110); HEMOLYSIS < 15 (0-50); Potassium 4.2 mmol/L (3.4-5.1); Sodium 134 mmol/L (137-145); Total Protein 6.8 g/dL (6.3-8.2)
[2024-03-17 18:55] LABS: Erythrocyte Sedimentation Rate 34 MM/HR (0-20)
== END ==
PROVIDERS: PCP Family Medicine; Referring Provider Specialist/Technologist Athletic Trainer; Visit Provider Specialist/Technologist Athletic Trainer
DX: M35.3 Polymyalgia rheumatica (principal)
CPT/HCPCS: 36415; 80053; 85027; 85651; 86140

== ENCOUNTER → 2024-04-16 11:05 | Outpatient (CLI) | payer MEDICARE, SELFPAY | PROVIDERS: PCP Family Medicine; Visit Provider Nurse Practitioner Family | DX: R30.0 Dysuria (principal) | CPT/HCPCS: 87077; 87086; 87186 ==

== ENCOUNTER → 2024-05-10 13:15 | Outpatient (CLI) | payer MEDICARE, SELFPAY ==
--- NOTE | 2024-05-10 | DI.MG.S_ITS ---
BILATERAL DIGITAL SCREENING MAMMOGRAM 3D/2D WITH CAD: 05/10/2024 CLINICAL: Routine screening. Family history of breast cancer. Comparison is made to exams dated: 04/08/2023 mammogram, 03/18/2022 mammogram, and 03/06/2021 mammogram - [facility]. The breasts are heterogeneously dense, which may obscure small masses (category c / 51-75% glandular tissue). Current study was also evaluated with a Computer Aided Detection (CAD) system. No significant masses, calcifications, or other findings are seen in either breast. There has been no significant interval change. IMPRESSION: NEGATIVE There is no mammographic evidence of malignancy. A 1 year screening mammogram is recommended. Based on the Tyrer Cuzick model (a risk assessment model) the patient's lifetime risk is 1.0% and her 10 year risk is 0.0%. According to the ACR, ACS, and NCCN guidelines, an annual breast MRI exam along with mammogram is recommended if the patient's lifetime risk is 20% or greater. This exam was interpreted at Station ID: [id number]. NOTE: For mammograms, a report in lay terms will be sent to the patient. Approximately 15% of breast malignancies will not be visualized mammographically. In the management of a palpable breast mass, a negative mammogram must not discourage biopsy of a clinically suspicious lesion. Electronically Signed By: Rivera zayas/mik:05/11/2024 07:41:36 letter sent: Normal Exam ACR BI-RADS Category 1: Negative
== END ==
LOC: MAMMO 13:16
PROVIDERS: PCP Family Medicine; Referring Provider Family Medicine; Visit Provider Family Medicine
DX: Z12.31 Encounter for screening mammogram for malignant neoplasm of breast (principal); Z80.3 Family history of malignant neoplasm of breast; R92.333 Mammographic heterogeneous density, bilateral breasts
CPT/HCPCS: 77063; 77067

== ENCOUNTER → 2024-09-20 09:29 | Outpatient (CLI) | payer MEDICARE, SELFPAY ==
[2024-09-20 10:28] LABS: Hematocrit 38.4 % (36-46); Mean Corpuscular Hemoglobin 34.2 PG (26-34); Mean Corpuscular Volume 100.6 fL (80-100); Platelet Count 256 X10^3/uL (150-400); Red Blood Cell Count 3.82 X10^6/uL (4.0-5.2); Red Cell Distribution Width 13.6 % (11.6-14.8); White Blood Cell Count 5.7 X10^3/uL (4.5-11.0)
[2024-09-20 11:01] LABS: Cholesterol 218 mg/dL (140-199); HDL Cholesterol 82 mg/dL (40-60); LDL Cholesterol Calculated 119 mg/dL (<100); Triglycerides 83 mg/dL (35-150)
[2024-09-20 11:07] LABS: Alanine Aminotransferase 19 IU/L (<35); Albumin 4.4 g/dL (3.5-5.0); Albumin Globulin Ratio 1.8 (1.0-2.8); Alkaline Phosphatase 90 U/L (38-126); Aspartate Aminotransferase 35 IU/L (14-36); BUN Creatinine Ratio 19.8 (6-22); Bilirubin Total 0.9 mg/dL (0.2-1.3); Blood Urea Nitrogen 17 mg/dL (7-17); C-Reactive Protein Quant 0.8 mg/dL (<1.0); Calcium 9.7 mg/dL (8.4-10.2); Carbon Dioxide 27 mmol/L (22-32); Chloride 102 mmol/L (98-107); Estimated Glomerular Filt Rate > 60 mL/min (>60); Globulin 2.5 g/dL (1.7-4.1); Glucose 101 mg/dL (70-99); HEMOLYSIS < 15 (0-50); Potassium 4.9 mmol/L (3.4-5.1); Sodium 136 mmol/L (137-145); Total Protein 6.9 g/dL (6.3-8.2)
[2024-09-20 12:57] LABS: Erythrocyte Sedimentation Rate 21 MM/HR (0-20)
== END ==
PROVIDERS: Specialist/Technologist Athletic Trainer; PCP Family Medicine; Referring Provider Internal Medicine Cardiovascular Disease; Visit Provider Internal Medicine Cardiovascular Disease
DX: E78.5 Hyperlipidemia, unspecified (principal); I10 Essential (primary) hypertension; M31.6 Other giant cell arteritis; Z79.01 Long term (current) use of anticoagulants
CPT/HCPCS: 36415; 80053; 80061; 85027; 85651; 86140

== ENCOUNTER 2024-11-05 10:27 | Emergency (ER) | payer MEDICARE, SELFPAY ==
[2024-11-05] VITALS (8 sets, daily range): BP systolic 118–150; BP diastolic 58–90; PULSE 60–73; RESP 19–34; TEMP 36.6; O2SAT 96–99; BMI 19.3
--- NOTE | 2024-11-05 10:47 | EKG_ITS ---
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
--- NOTE | 2024-11-05 11:29 | ED_ITS ---
HPI - General Adult <Renetta Estrada PA-C - Last Filed: 11/05/24 13:10> General Chief complaint: Hypertension Stated complaint: Sent from [facility] AFIB X 2 days Time Seen by Provider: 11/05/24 11:27 Mode of arrival: Ambulatory History of Present Illness HPI narrative: Ms. Nichols is a pleasant 84-year-old female with a past medical history of atrial fibrillation on metoprolol and Eliquis who presents to the emergency department for left elbow pain and elevated blood pressure x2 days. Patient reports the last 2 mornings she woke up with left elbow pain which prompted her to take her blood pressure and she found that her blood pressure has been in the 150s systolic, she is typically in the 120s systolic. She went to the walk-in clinic but was sent to the emergency department for further evaluation. States that at this time the left elbow pain is very mild, she describes it as a ?nerve pain?, and the pain is not bothering her by any means but it is not normal for her and she did not injure herself. Her blood pressure is in her normal range of 124/58 at this time. She denies chest pain, shortness of breath, fevers, chills, cough, abdominal pain, nausea, vomiting, diarrhea. She did recently travel [facility] [place] [facility]. Related Data Home Medications ?Medication ?Instructions ?Recorded ?Confirmed apixaban 5 mg tablet (Eliquis) 2.5 mg PO BID 06/05/20 06/16/24 metoprolol succinate 25 mg 25 mg PO DAILY 04/16/24 tablet,extended release 24 hr Previous Rx's ?Medication ?Instructions ?Recorded Parking Permit... #1 ea 06/04/22 Estriol Vaginal-CB 1MG Suppository 1 mg vaginal 2XW #3 0 grams 09/06/24 Allergies Allergy/AdvReac Type Severity Reaction Status Date / Time gluten AdvReac Intermediate diarrhea Verified 06/16/24 14:01 Review of Systems <Renetta Estrada PA-C - Last Filed: 11/05/24 13:10> Review of Systems ROS Unobtainable: All systems reviewed & are unremarkable except as noted in HPI and below Patient History <Renetta Estrada PA-C - Last Filed: 11/05/24 13:10> Medical History On prednisone therapy Thrombocytosis Left wrist pain Chronic diarrhea Milia Essential hypertension Atrial fibrillation Macrocytosis Osteopenia (10/15/10) Degenerative disc disease, lumbar Soft tissue mass Spinal stenosis of lumbar region Mild hyperlipidemia Squamous cell carcinoma of skin (02/16/15) Surgical History Status post ovarian cystectomy Family History Mother Breast cancer Sister Age: 84 Cervical cancer Father Rheumatoid arthritis Social History marital status: household members: spouse occupational status: previously employed Smoking Status: Former smoker Tobacco: How many years used: 20 second hand exposure: No alcohol intake: current (a glass of wine a day) substance use type: does not use Smoking Status: Former smoker alcohol intake frequency: 0-2 drinks per day Alcohol type: wine Exam <Renetta Estrada PA-C - Last Filed: 11/05/24 13:10> Narrative Exam Narrative: GENERAL: 84 year old patient appears stated age. Well-developed patient, in no acute distress. HEAD: Atraumatic. Normocephalic. EYES: No scleral icterus. No injection or drainage. NECK: Trachea midline. Cervical ROM intact. CARDIOVASCULAR: Regular rate and irregular rhythm. RESPIRATORY: ?Nonlabored respirations. ?Speaking in clear, full sentences. ?Clear to auscultation. Breath sounds equal bilaterally. No wheezes, rales, or rhonchi. ? GASTROINTESTINAL: Abdomen soft, non-tender, nondistended. EXTREMITIES: No edema or joint tenderness. No pain with range of motion left elbow, no deformities, no tenderness to palpation. NEURO: AOx3. ?Clear speech. ?Moves all 4 extremities appropriately. SKIN: No rash or erythema of visible areas Initial Vital Signs Initial Vital Signs: Vital Signs Temperature 98 F 11/05/24 10:32 Pulse Rate 73 11/05/24 10:32 Respiratory Rate 20 11/05/24 10:32 Blood Pressure 124/58 L 11/05/24 10:32 Pulse Oximetry 96 11/05/24 10:32 Oxygen Delivery Method Room Air 11/05/24 10:32 <DO Whitney Anthony Last Filed: 11/15/24 19:15> Initial Vital Signs Initial Vital Signs: Vital Signs Temperature 98 F 11/05/24 10:32 Pulse Rate 73 11/05/24 10:32 Respiratory Rate 20 11/05/24 10:32 Blood Pressure 124/58 L 11/05/24 10:32 Pulse Oximetry 96 11/05/24 10:32 Oxygen Delivery Method Room Air 11/05/24 10:32 Course <PATRIC Wong Last Filed: 11/05/24 13:10> Orders Ordered: Discontinued Medications Aspirin (Aspirin 81 Mg Chew Tab) 324 mg PO NOW ONE Stop: 11/05/24 11:40 Last Admin: 11/05/24 12:48 Dose: Not Given Documented By: Vital Signs Vital signs: Vital Signs - 8 hr 11/05/24 10:32 Temperature 98 F Pulse Rate 73 Respiratory Rate 20 Blood Pressure 124/58 L Pulse Oximetry 96 Oxygen Delivery Method Room Air <Berta Carroll DO - Last Filed: 11/15/24 19:15> Orders Ordered: Discontinued Medications Aspirin (Aspirin 81 Mg Chew Tab) 324 mg PO NOW ONE Stop: 11/05/24 11:40 Last Admin: 11/05/24 12:48 Dose: Not Given Documented By: Vital Signs Vital signs: Vital Signs - 8 hr 11/05/24 10:32 Temperature 98 F Pulse Rate 73 Respiratory Rate 20 Blood Pressure 124/58 L Pulse Oximetry 96 Oxygen Delivery Method Room Air Medical Decision Making <PATRIC Wong Last Filed: 11/05/24 13:10> Medical Records Medical records reviewed: Yes I reviewed the patient's medical records. Lab Data 11/05/24 11:40 11/05/24 11:40 Labs: Lab Results 11/05/24 Range/Units 11:40 WBC 6.6 (4.5-11.0) X10^3/uL RBC 3.87 L (4.0-5.2) X10^6/uL Hgb 13.4 (12.0-16.0) g/dL Hct 39.0 (36-46) % MCV 100.6 H (80-100) fL MCH 34.5 H (26-34) PG MCHC 34.3 (30-36) % RDW 13.1 (11.6-14.8) % Plt Count 278 (150-400) X10^3/uL Neut % (Auto) 69.9 (50-75) % Lymph % (Auto) 20.8 L (25-40) % [place] % (Auto) 7.8 (3-14) % Eos % (Auto) 1.1 L (2-4) % Baso % (Auto) 0.4 (0-2) % Neut # (Auto) 4600 (5355-8992) /uL Lymph # (Auto) 1400 (0658-2972) /uL [place] # (Auto) 500 (0-900) /uL Eos # (Auto) 100 (0-450) /uL Baso # (Auto) 0 (0-100) /uL PT 12.7 H (9.4-12.5) SECONDS INR 1.1 (0.9-1.3) APTT 35 (25.1-36.5) SECONDS Sodium 136 L (137-145) mmol/L Potassium 4.2 (3.4-5.1) mmol/L Chloride 101 (98-107) mmol/L Carbon Dioxide 27 (22-32) mmol/L BUN 11 (7-17) mg/dL Creatinine 0.75 (0.52-1.04) mg/dL Estimated GFR > 60 (>60) mL/min BUN/Creatinine Ratio 14.7 (6-22) Glucose 122 H (70-99) mg/dL Calcium 9.5 (8.4-10.2) mg/dL Total Bilirubin 0.9 (0.2-1.3) mg/dL AST 36 (14-36) IU/L ALT 17 (<35) IU/L Alkaline Phosphatase 85 (38-126) U/L Total Creatine Kinase 42 (30-135) U/L Troponin I < 0.012 (0.01-0.034) ng/mL Total Protein 7.5 (6.3-8.2) g/dL Albumin 4.5 (3.5-5.0) g/dL Globulin 3.0 (1.7-4.1) g/dL Albumin/Globulin Ratio 1.5 (1.0-2.8) Lipase 41 (23-300) U/L Imaging Data Chest x-ray: Radiologist's Impression: PROCEDURE: XR CHEST 1V INDICATIONS: htn left arm pain TECHNIQUE: One view of the chest was acquired. COMPARISON: [facility], , XR CHEST 2V, 11/22/2020, 14:57. FINDINGS: Surgical changes and devices: None. Lungs and pleura: Lungs are clear. No pleural effusions or pneumothorax. Mediastinum: Mediastinal contours appear normal. Heart size is normal. Bones and chest wall: No suspicious bony lesions. Overlying soft tissues appear unremarkable. IMPRESSION: No acute cardiopulmonary pathology. Dictated by: Mieky Burton M.D. on 11/05/2024 at 12:31 Approved by: Mikey Burton M.D. on 11/05/2024 at 12:31 Left Elbow X-Ray: Radiologist's Impression: PROCEDURE: XR ELBOW LT MIN 3V INDICATIONS: nontraumatic left elbow pain TECHNIQUE: 3 views of the elbow were acquired. COMPARISON: None. FINDINGS: Bones: No fractures or dislocations. No suspicious bony lesions. Soft tissues: No elbow joint effusion. No suspicious soft tissue calcifications. IMPRESSION: No acute elbow fracture or dislocation. No significant joint effusion. Dictated by: Mikey Burton M.D. on 11/05/2024 at 12:30 Approved by: Mikey Burton M.D. on 11/05/2024 at 12:31 MDM Narrative Medical decision making narrative: 84-year-old female with a past medical history of atrial fibrillation on metoprolol and Eliquis who presents to the emergency department for left elbow pain and elevated blood pressure x2 days. Differential diagnosis includes but is not limited to left elbow sprain, strain, arthritis, radiculopathy, referred cardiac pain, etc. On exam the patient is in no acute distress, nontoxic-appearing, all vital signs within normal limits. Given history of nontraumatic left elbow/arm pain associated with elevated blood pressure, we will obtain EKG, cardiac labs. No shortness of breath or concerned for PE at this time. Patient is currently in atrial fibrillation however appears that she typically stays in AFib. ECG reveals atrial fibrillation with a rate of 76 beats per minute. Blood pressures remained within normal range during duration of ED stay. Chest x-ray and left elbow x-ray are normal. Labs very reassuring with a negative troponin, normal renal function BUN 11 creatinine 0.75, normal WBC count 6.6, hemoglobin 13.4. Discussed with the patient that morning left elbow pain could be related to sleeping position, elevated blood pressures could be related or secondary to this pain. We discussed supportive care for left elbow, we also discussed proper blood pressure checking at home, writing down these values to bring with the PCP and having her blood pressure cuff calibrated. No change to her medications as needed. She has remained symptom free during ED stay. Discussed strict ED return precautions follow up with PCP. Patient verbalized understanding all information is agreeable to the plan, questions answered she is stable for discharge home. <Berta Carroll, DO - Last Filed: 11/15/24 19:15> Lab Data Labs: Lab Results 11/05/24 Range/Units 11:40 WBC 6.6 (4.5-11.0) X10^3/uL RBC 3.87 L (4.0-5.2) X10^6/uL Hgb 13.4 (12.0-16.0) g/dL Hct 39.0 (36-46) % MCV 100.6 H (80-100) fL MCH 34.5 H (26-34) PG MCHC 34.3 (30-36) % RDW 13.1 (11.6-14.8) % Plt Count 278 (150-400) X10^3/uL Neut % (Auto) 69.9 (50-75) % Lymph % (Auto) 20.8 L (25-40) % [place] % (Auto) 7.8 (3-14) % Eos % (Auto) 1.1 L (2-4) % Baso % (Auto) 0.4 (0-2) % Neut # (Auto) 4600 (2368-8315) /uL Lymph # (Auto) 1400 (7961-7218) /uL [place] # (Auto) 500 (0-900) /uL Eos # (Auto) 100 (0-450) /uL Baso # (Auto) 0 (0-100) /uL PT 12.7 H (9.4-12.5) SECONDS INR 1.1 (0.9-1.3) APTT 35 (25.1-36.5) SECONDS Sodium 136 L (137-145) mmol/L Potassium 4.2 (3.4-5.1) mmol/L Chloride 101 (98-107) mmol/L Carbon Dioxide 27 (22-32) mmol/L BUN 11 (7-17) mg/dL Creatinine 0.75 (0.52-1.04) mg/dL Estimated GFR > 60 (>60) mL/min BUN/Creatinine Ratio 14.7 (6-22) Glucose 122 H (70-99) mg/dL Calcium 9.5 (8.4-10.2) mg/dL Total Bilirubin 0.9 (0.2-1.3) mg/dL AST 36 (14-36) IU/L ALT 17 (<35) IU/L Alkaline Phosphatase 85 (38-126) U/L Total Creatine Kinase 42 (30-135) U/L Troponin I < 0.012 (0.01-0.034) ng/mL Total Protein 7.5 (6.3-8.2) g/dL Albumin 4.5 (3.5-5.0) g/dL Globulin 3.0 (1.7-4.1) g/dL Albumin/Globulin Ratio 1.5 (1.0-2.8) Lipase 41 (23-300) U/L ECG Data Attestation: I personally reviewed and interpreted this ECG as follows: Prior ECG tracings: available for review Interpretation: AFib premature ventricular complex rate of 76 QRS is 78 QTC 374, no acute ST elevation nonspecific change. Prior EKG from 06/16/2024 shows atrial fibrillation with a rate of 67. Discharge Plan Departure Patient Disposition: Home Clinical Impression: Elbow pain, left, Elevated blood pressure, situational Instructions: DI for High Blood Pressure Activity Restrictions/Additional Instructions: Dear Simone, Thank you for coming to the emergency department. Today you were evaluated for elevated blood pressure reading at home and left elbow pain. Your blood pressures have remained normal while in the emergency department. Your lab work and imaging was all very reassuring. You are in atrial fibrillation but have a normal heart rate. At this time, I recommend that you take your blood pressure daily at home, right down this value, and bring it with to your next primary care doctor's appointment to see what your average blood pressure readings are. I also recommend that you bring your blood pressure cuff into your primary care's office so that they can calibrate it and make sure that it is accurate. Please rest, use Tylenol if needed for left elbow discomfort. Return to the emergency department immediately if you develop chest pain, difficulty breathing, changes in vision or dizziness, severe headache or other concerns. Please follow up with your primary care doctor within the next 2-3 days for ER follow-up. (If you do not have a PCP you can call [phone]. ?to schedule an appointment with an [facility] Primary Care Provider) IF YOU DEVELOP ANY NEW OR WORSENING SYMPTOMS, RETURN TO THE ER! Please read the attached instructions, they highlight more specific treatments and interventions for you at home. Thank you for letting me participate in your care, Renetta Estrada PA-C Prescriptions: No Action metoprolol succinate 25 mg tablet extended release 24 hr 25 mg PO DAILY Estriol Vaginal-CB 1MG Suppository 1 mg vaginal 2XW Qty: 30 0RF Eliquis 5 mg tablet 2.5 mg PO BID (DME) Parking Permit... See Rx Instructions .Route .MEDSUPPLY Qty: 1 0RF Rx Instructions: I find this patient to be medically disabled and qualified for Disabled Parking as indicated, and signed, on the Accompanying Disabled Parking Application for Individuals. Referrals: Jeffrey Castillo MD [Primary Care Provider, Family Practice] Stand Alone Forms: Patient Portal/API ED Sign-out <Berta Carroll, - Last Filed: 11/15/24 19:15> Cosign ED Attending Cosemiliaature Attestation: I was immediately available in the department for consultation.
--- NOTE | 2024-11-05 11:39 | DI.RAD.S_ITS ---
PROCEDURE: XR ELBOW LT MIN 3V INDICATIONS: nontraumatic left elbow pain TECHNIQUE: 3 views of the elbow were acquired. COMPARISON: None. FINDINGS: Bones: No fractures or dislocations. No suspicious bony lesions. Soft tissues: No elbow joint effusion. No suspicious soft tissue calcifications. IMPRESSION: No acute elbow fracture or dislocation. No significant joint effusion. Dictated by: Mikey Burton M.D. on 11/05/2024 at 12:30 Approved by: Mikey Burton M.D. on 11/05/2024 at 12:31
--- NOTE | 2024-11-05 11:39 | DI.RAD.S_ITS ---
PROCEDURE: XR CHEST 1V INDICATIONS: htn left arm pain TECHNIQUE: One view of the chest was acquired. COMPARISON: [facility], CR, XR CHEST 2V, 11/22/2020, 14:57. FINDINGS: Surgical changes and devices: None. Lungs and pleura: Lungs are clear. No pleural effusions or pneumothorax. Mediastinum: Mediastinal contours appear normal. Heart size is normal. Bones and chest wall: No suspicious bony lesions. Overlying soft tissues appear unremarkable. IMPRESSION: No acute cardiopulmonary pathology. Dictated by: Mikey Burton M.D. on 11/05/2024 at 12:31 Approved by: Mikey Burton M.D. on 11/05/2024 at 12:31
[2024-11-05 11:54] LABS: Add Manual Diff / Slide Review NO; Basophils Absolute Auto 0 /uL (0-100); Basophils Percent Auto 0.4 % (0-2); Eosinophils Absolute Auto 100 /uL (0-450); Eosinophils Percent Auto 1.1 % (2-4); Hemoglobin 13.4 g/dL (12.0-16.0); Lymphocytes Absolute Auto 1400 /uL (1100-4500); Lymphocytes Percent Auto 20.8 % (25-40); Mean Corpuscular HGB Conc 34.3 % (30-36); Mean Corpuscular Hemoglobin 34.5 PG (26-34); Mean Corpuscular Volume 100.6 fL (80-100); Monocytes Absolute Auto 500 /uL (0-900); Monocytes Percent Auto 7.8 % (3-14); Neutrophils Absolute Auto 4600 /uL (1500-7000); Neutrophils Percent Auto 69.9 % (50-75); Platelet Count 278 X10^3/uL (150-400); Red Blood Cell Count 3.87 X10^6/uL (4.0-5.2); Red Cell Distribution Width 13.1 % (11.6-14.8); White Blood Cell Count 6.6 X10^3/uL (4.5-11.0)
[2024-11-05 12:04] LABS: INR 1.1 (0.9-1.3); Prothrombin Time 12.7 SECONDS (9.4-12.5)
[2024-11-05 12:06] LABS: PTT Partial Thromboplastin Tim 35 SECONDS (25.1-36.5)
[2024-11-05 12:10] LABS: Alanine Aminotransferase 17 IU/L (<35); Albumin 4.5 g/dL (3.5-5.0); Albumin Globulin Ratio 1.5 (1.0-2.8); Alkaline Phosphatase 85 U/L (38-126); Aspartate Aminotransferase 36 IU/L (14-36); BUN Creatinine Ratio 14.7 (6-22); Bilirubin Total 0.9 mg/dL (0.2-1.3); Blood Urea Nitrogen 11 mg/dL (7-17); Calcium 9.5 mg/dL (8.4-10.2); Carbon Dioxide 27 mmol/L (22-32); Chloride 101 mmol/L (98-107); Creatine Kinase 42 U/L (30-135); Estimated Glomerular Filt Rate > 60 mL/min (>60); Glucose 122 mg/dL (70-99); HEMOLYSIS < 15 (0-50); Lipase 41 U/L (23-300); Potassium 4.2 mmol/L (3.4-5.1); Sodium 136 mmol/L (137-145); Total Protein 7.5 g/dL (6.3-8.2)
[2024-11-05 12:22] LABS: Troponin I < 0.012 ng/mL (0.01-0.034)
== END 2024-11-05 13:38 | disposition home or self-care (01) ==
PROVIDERS: Emergency Provider Physician Assistant; PCP Family Medicine
DX: M25.522 Pain in left elbow (principal); I48.91 Unspecified atrial fibrillation; I10 Essential (primary) hypertension; Z79.01 Long term (current) use of anticoagulants; Z87.891 Personal history of nicotine dependence
CPT/HCPCS: 36415; 71045; 73080; 80053; 82550; 83690; 84484; 85025; 85610; 85730; 93005; 99283; 99284

== ENCOUNTER → 2025-02-17 16:06 | Outpatient (CLI) | payer MEDICARE, SELFPAY ==
--- NOTE | 2025-02-17 16:07 | DI.ECHO.S_ITS ---
[facility] : : [id number] : [place] : : [id number] : : Phone: [phone] Echocardiogram Report + + :Name: TANYA DICKENS Study Date: 02/17/2025 Height: 62 in : :[facility] ReadingLocation: Weight: 107 lb : : Gender: Female BSA: 1.5 m2 : :: 1940 Age: 84 yrs BP: 133/95 mmHg: :Reason For Study: ATRIAL FIBRILLATION : :Ordering Physician: LACHELLE, : :ZOHAIB Performed By: Chuck Pack : :Referring: ZOHAIB LAROSE : + + Interpretation Summary 1) Normal left ventricular thickness, size, wall motion, and systolic function (EF 55-60%). 2) Normal right ventricular size with low normal function. 3) Severe biatrial enlargement present. 4) No significant valvular abnormalities. 5) Compared to the Echo done 06/28/2022, severe biatrial enlargement is present on this study. Procedure: A two-dimensional transthoracic echocardiogram with color flow and Doppler was performed. The study quality was technically good. Comparison is made with the echocardiogram of 06/28/2022. The patient was in atrial fibrillation with heart rates between 54-109 bpm during the exam. Left Ventricle: The left ventricle is normal in size. There is normal left ventricular wall thickness. There is no ventricular septal defect visualized. The ejection fraction is estimated to be 55-60%. There are no focal wall motion abnormalities. Diastolic function could not be accurately assessed due to atrial fibrillation. Right Ventricle: The right ventricle is normal in size and function. Atria: The left atrium is severely dilated. The right atrium is severely dilated. There is no Doppler evidence for an interatrial shunt. Mitral Valve: There is mild mitral annular calcification. The mitral valve leaflets appear mildly thickened. There is mild mitral regurgitation. Aortic Valve: The aortic valve is trileaflet. The aortic valve opens well. No aortic regurgitation is present. Tricuspid Valve: The tricuspid valve leaflets are thin and pliable. There is moderate tricuspid regurgitation. The right ventricular systolic pressure is estimated to be at least 50 mmHg based on an estimated right atrial pressure of 3 mm Hg. Pulmonic Valve: The pulmonic valve is not well seen, but is grossly normal. There is trace pulmonic regurgitation. Great Vessels: The aortic root is normal size. The dimensions of the ascending aorta are normal. The pulmonary artery is normal size. The IVC is of normal diameter and collapses greater than 50% with a sniff. This suggests a low right atrial pressure of 3 mm Hg. Pericardium/ Pleura There is no pericardial effusion. There is no pleural effusion. MMode/2D Measurements & Calculations LVIDd: 3.9 cm LVOT diam: 1.7 cm LVIDs: 2.5 cm Ao root diam: 2.7 cm FS: 37.1 % asc Aorta Diam: 2.8 cm EPSS: 0.57 cm IVSd: 1.0 cm LVPWd: 0.94 cm LV glover. diameter/BSA (cm/m^2): 2.7 LV sys. diameter/BSA (cm/m^2): 1.7 LA A2 area: 26.8 cm2 RA long axis: 5.7 cm LA A4 area: 23.9 cm2 RA area: 22.8 cm2 LA length (vol): 7.0 cm RA vol: 77.9 ml LA vol: 77.6 ml RA : 53.2 ml/m2 LA vol index: 53.0 ml/m2 IVC diam: 1.4 cm RVD1 (basal): 3.2 cm RVD2 (mid): 2.1 cm TAPSE: 1.9 cm Doppler Measurements & Calculations Ao V2 max: 122.5 cm/sec LVOT Max Alcides: 93.6 cm/sec Ao V2 mean: 81.5 cm/sec LV V1 max P.5 mmHg Ao max P.0 mmHg LV V1 VTI: 18.1 cm Ao mean P.0 mmHg OPAL(I,D): 1.6 cm2 Ao V2 VTI: 24.2 cm OPAL(V,D): 1.6 cm2 sev ratio: 0.75 OPAL indexed to BSA (cm^2/m^2): 1.1 MV E max alcides: 127.6 cm/sec TR max alcides: 344.4 cm/sec MV A max alcides: 40.3 cm/sec TR max P.4 mmHg MV E/A: 3.2 PA V2 max: 77.6 cm/sec Med Peak E' Alcides: 6.3 cm/sec PA V2 mean: 55.5 cm/sec E/E' med: 20.4 PA mean P.4 mmHg Lat Peak E' Alcides: 11.5 cm/sec PA pr(Accel): 48.2 mmHg E/E' lat: 11.1 E/e' average: 15.8 MV dec time: 0.12 sec SV(LVOT): 38.9 ml Reading Physician:02:24 PM
== END ==
LOC: ECHO 16:06
PROVIDERS: PCP Family Medicine; Referring Provider Family Medicine; Visit Provider Family Medicine
DX: I08.1 Rheumatic disorders of both mitral and tricuspid valves (principal); I48.19 Other persistent atrial fibrillation; R53.83 Other fatigue
CPT/HCPCS: 93306

== ENCOUNTER → 2025-02-28 15:23 | Outpatient (CLI) | payer MEDICARE, SELFPAY ==
[2025-02-28 15:45] LABS: Sample 1 Time 10/06/2025; Sample 2 time 10/06/2025; Sample 3 time 10/06/2025
== END ==
PROVIDERS: PCP Family Medicine; Referring Provider Family Medicine; Visit Provider Family Medicine
DX: K52.9 Noninfective gastroenteritis and colitis, unspecified (principal); M35.3 Polymyalgia rheumatica; M51.369 Other intervertebral disc degeneration, lumbar region without mention of lumbar back pain or lower extremity pain
CPT/HCPCS: 82270; 83993; 87177

== ENCOUNTER → 2025-03-04 13:50 | Outpatient (CLI) | payer MEDICARE, SELFPAY ==
--- NOTE | 2025-03-04 13:51 | DI.RAD.S_ITS ---
PROCEDURE: XR DEXA AXIAL SKELETON INDICATIONS: screening for osteoporosis COMPARISON: [facility], AN, XR DEXA AXIAL SKELETON, 03/03/2023, 13:14. FINDINGS: Lumbar Spine: Bone mineral density 0.819 previously 0.806) g/cm2, T score -1.8 (previously -1.9). Left Femoral Neck: Bone mineral density 0.528 (previously 0.525) g/cm2, T score -2.9 (previously -2.9). Left Hip: Bone mineral density 0.648 (previously 0.661) g/cm2, T score -2.4 (previously -2.3). Fracture Risk Calculation (when applicable): 10-year fracture risk of a major osteoporotic fracture 48 percent and of a hip fracture 40 percent. (T score greater or equal to -1.0 to: NORMAL) (T score from -1.1 to -2.4: OSTEOPENIA) (T score less than or equal to -2.5: OSTEOPOROSIS) IMPRESSION: Osteoporosis--- recommend repeat DEXA in 2 years or less for reassessment of response to treatment. Follow-up guidelines as follows: Osteoporosis: Consider a repeat DEXA and Vertebral Fracture Assessment (VFA) exam in 2 years or sooner if medically necessary, to reassess this patient's status. Osteopenia: Consider a repeat DEXA in 2-3 years to reassess this patient's status, or if there is a new clinical indication. Normal: Consider a repeat DEXA in 5 years or sooner, or if there is a new clinical indication. All treatment decisions require clinical judgment and consideration of individual patient factors, including patient preferences, comorbidities, previous drug use, risk factors not captured in the FRAX model (e.g., frailty, falls, vitamin D deficiency, increased bone turnover, interval significant decline in bone density ) and possible under- or over-estimation of fracture risk by FRAX. In addition, the NOF Guide recommends that FDA-approved medical therapies be considered in postmenopausal women and men age >= 50 years with a: * Hip or vertebral (clinical or morphometric) fracture * T-score of <=-2.5 at the spine or hip * Ten-year fracture probability by FRAX of >= 3% for hip fracture or >=20% for major osteoporotic fracture. Dictated by: David Hernandez M.D. on 03/07/2025 at 18:17 Approved by: David Hernandez M.D. on 03/07/2025 at 18:20
== END ==
LOC: RAD 13:50
PROVIDERS: PCP Family Medicine; Referring Provider Family Medicine; Visit Provider Family Medicine
DX: M81.0 Age-related osteoporosis without current pathological fracture (principal)
CPT/HCPCS: 77080

== ENCOUNTER → 2025-03-15 14:19 | Outpatient (CLI) | payer MEDICARE, SELFPAY | PROVIDERS: PCP Family Medicine; Visit Provider Nurse Practitioner Family | DX: R30.0 Dysuria (principal) | CPT/HCPCS: 87077; 87086 ==